=== PATIENT | female | born 1985 | race Caucasian/White ===

== ENCOUNTER 2021-07-28 19:11 | Emergency (ER) | payer OTHER, SELFPAY | END 2021-07-28 23:16 | disposition left against medical advice (07) | LOC: HO.ED 23:02 | PROVIDERS: Emergency Provider Emergency Medicine | DX: S09.90XA Unspecified injury of head, initial encounter (principal); W19.XXXA Unspecified fall, initial encounter; Y93.9 Activity, unspecified; Y92.9 Unspecified place or not applicable; Y99.9 Unspecified external cause status ==

== ENCOUNTER 2021-07-30 13:17 | Emergency (ER) | payer OTHER, SELFPAY ==
--- NOTE | ~2021-07-30 | XR_ITS ---
EXAMINATION: XR SACRUM AND COCCYX CLINICAL INFORMATION: Fall. Pain. COMPARISON: None TECHNIQUE: 2 views of the sacrum and 2 views of the coccyx were obtained. FINDINGS: There are no fractures. No bone, joint or soft tissue abnormality is demonstrated. XR/XR sacrum coccyx min 2V IMPRESSION: Unremarkable examination.
[2021-07-30 13:55] VITALS: BP 139/78; PULSE 70; RESP 16; TEMP 36.2; O2SAT 99; BMI 28.3
[2021-07-30] MEDS: Lidocaine 4 % Patch ADH..PATCH 1 PATCH TRANSDERMA (15:57)
[2021-07-30] MEDS: Ketorolac Tromethamine 30 MG/ML VIAL IM (15:57)
--- NOTE | 2021-07-30 16:01 | ED_ITS ---
HPI - Back Pain/Injury General Chief Complaint: Back Pain/Injury Stated Complaint: fall back inj Time Seen by Provider: 07/30/21 15:13 Source: patient Mode of arrival: ambulatory History of Present Illness HPI Narrative: 35-year-old female with no significant past medical history presenting to the ED complaining of buttock/coccygeal pain and headache s/p mechanical trip and fall on Wednesday. States was kicking a ball with dog when dog ran into foot causing her to fall on but, admits fell backwards and hit her head against bumper of car from standing. Denies LOC. Has been ambulatory since the incident. Reports associated pain radiating down LLE. Denies fever, chills, nausea, vomiting, vision changes, weakness, urinary incontinence/retention. Admits headache improved with medication at home. Denies taking AC MD elicited complaint: back pain Onset (ago): day(s) Related Data Previous Rx's Medication Instructions Recorded cyclobenzaprine 5 mg tablet 5 mg PO Q8H PRN 5 Days #14 tab 07/30/21 lidocaine 5 % topical patch 1 patch TOPICAL DAILY PRN #30 ea 07/30/21 (Lidoderm) MDD remove after 12 hours naproxen 500 mg tablet 500 mg PO BID PRN 10 Days #20 tab 07/30/21 Allergies Allergy/AdvReac Type Severity Reaction Status Date / Time Sulfa (Sulfonamide Allergy Rash Verified 07/30/21 13:55 Antibiotics) Review of Systems Review of Systems: Constitutional: No Fever, No Chills ENT/Mouth: No Ear Pain, No sore throat, No Rhinorrhea, No Swallowing Difficulty Cardiovascular: No Chest Pain, No SOB Respiratory: No Cough, No Sputum Gastrointestinal: No Nausea, No Vomiting, No Diarrhea, No Constipation, No Abdominal pain Genitourinary: No Dysuria, No Urinary Frequency, No Urinary Incontinence/retention Musculoskeletal: + joint pain, No Myalgias, No Joint Swelling Skin: No Skin Lesions, No rash Neuro: No Weakness, No Numbness, No Paresthesias, +headache Yes all other systems are reviewed and are negative Neurologic: Denies Abnormal speech present [facility] Past Medical History Attestation statement: The following information was validated with the patient. Social History Social History Advance Directives: No Advance Directives Information Provided: No Physical Exam Vital Signs: Vital Signs: Last Vital Signs Temp 97.2 F 07/30/21 13:55 Pulse 70 07/30/21 13:55 Resp 16 07/30/21 13:55 BP 139/78 07/30/21 13:55 Pulse Ox 99 07/30/21 13:55 BMI result Body Mass Index 28.3 Const: General: cooperative, healthy appearing, no acute distress, alert and awake Orientation/consciousness: patient oriented x3 Limitations: no limitations HEENT: Head: Yes normal to inspection and Yes atraumatic Ears: hearing grossly normal bilaterally General nose exam: Normal external nose present Face and sinus: Yes normal facial exam Eyes: General: appearance normal, both eyes and all related structures EOM: EOMs intact bilaterally Neck: Other: No midline cervical spinous tenderness Neck: Yes normal visual inspection and Yes no meningeal signs Resp: Effort & Inspection: normal respiratory effort and no respiratory distress Cardio: Rate: regular rate GI: Inspection: Yes normal to inspection Palpation (GI): Soft to palpation, nontender, no guarding and not rigid : General: Yes no CVA tenderness Back/Spine/Pelvis: Other: No midline thoracic/lumbar spinous tenderness/step-off or deformity. + coccygeal tenderness > right. No deformity/ecchymosis or erythema Back: no CVA tenderness Skin: Rashes: no rashes Wounds: no wounds Neuro: General: patient oriented x3, gait normal, tone normal, moves all extremities, no meningeal signs and no focal motor deficits Cognition (Neuro): normal cognition Speech: No Abnormal speech present Gait exam (Neuro): Normal gait present Motor exam (neuro): 5/5 motor strength present throughout Extrem: General: Yes normal to inspection Course Course Course Narrative: XR sacrum coccyx min 2V IMPRESSION: Unremarkable examination. >> results discussed with patient in spanish interpreter including worrisome signs and symptoms and strict return precautions and need to follow-up with PCP MDM - Back Pain/Injury MDM Narrative Medical decision making narrative: 35-year-old female with no significant past medical history presenting to the ED complaining of buttock/coccygeal pain and headache s/p mechanical trip and fall on Wednesday. On exam vital signs stable, NAD/nontoxic appearing. No midline spinous tenderness throughout, no red flag symptoms. No focal neuro deficits. Concern for fracture versus contusion versus MSK pain versus concussion. Unlikely ICH/cauda equina or cord compression Discussed worrisome signs and symptoms and strict return precautions with patient in need follow-up with PCP Medical Records Attestation: I reviewed the patient's medical records. Lab Data Attestation: I reviewed the patient's lab results. Discharge Plan Discharge Clinical Impression: Low back pain, Head injury Patient Disposition: Home, Self-Care Instructions: Acute Low Back Pain (ED) Additional Instructions: Your x-rays unremarkable Your pain is likely musculoskeletal Flexeril is a muscle relaxer, take at night as it makes you drowsy, do not drive, drink alcohol, or operate machinery while taking it Naproxen as an anti-inflammatory / pain medication, take with food Lidoderm patches are numbing patches, apply to painful area In addition take Tylenol at home If you develop constant worsening headaches, nausea/vomiting, weakness please return to the ED. If symptoms persist or worsen, pain becomes unbearable, you developed urinary retention or incontinence, or weakness return to the ED Prescriptions: New lidocaine [Lidoderm] 5 % adhesive patch,medicated 1 patch topical DAILY MDD remove after 12 hours PRN (Reason: pain) Qty: 30 0RF Rx Instructions: leave on most painful area for up to 12 hrs naproxen 500 mg tablet 500 mg PO BID PRN (Reason: pain) 10 Days Qty: 20 0RF cyclobenzaprine 5 mg tablet 5 mg PO Q8H PRN (Reason: pain (scale score 7-10)) 5 Days Qty: 14 0RF Referrals: Physician,Unknown J [Primary Care Provider] - 2 days
== END 2021-07-30 16:18 | disposition home or self-care (01) ==
PROVIDERS: Emergency Provider Emergency Medicine
DX: M54.50 Low back pain, unspecified (principal); R51.9 Headache, unspecified; M53.3 Sacrococcygeal disorders, not elsewhere classified; Z79.899 Other long term (current) drug therapy
CPT/HCPCS: 72220; 96372; 99282; 99284; J1885

== ENCOUNTER 2022-05-07 22:52 | Emergency (ER) | payer OTHER, SELFPAY ==
--- NOTE | ~2022-05-07 | XR_ITS ---
EXAMINATION: XR CHEST CLINICAL INFORMATION: Left-sided chest pain. COMPARISON: None TECHNIQUE: 2 views of the chest were obtained. FINDINGS: No significant abnormality is noted involving the heart, lungs, mediastinum, bony thorax or soft tissues. XR/XR chest 2V IMPRESSION: Unremarkable examination.
[2022-05-07 22:54] VITALS: BP 120/78; PULSE 87; RESP 18; TEMP 36.7; O2SAT 98; BMI 28.3
--- NOTE | 2022-05-07 22:57 | ECG_ITS ---
Test Reason : Chest Pain Blood Pressure : / mmHG Vent. Rate : 082 BPM Atrial Rate : 082 BPM P-R Int : 150 ms QRS Dur : 076 ms QT Int : 384 ms P-R-T Axes : 060 045 049 degrees QTc Int : 448 ms Normal sinus rhythm Normal ECG No previous ECGs available Referred By: Generic ED Physician Electronically Signed By:Jaswinder Torres
--- OUTSIDE RECORDS SUMMARY | 2022-05-07 23:14 | XMS_ITS | Continuity of Care Document ---
:1985 Author Organization [facility] Address [address] [place] [address]- Care Team Providers Name Role Phone Rafael VELASQUEZ, Quynh Rapp Primary Care Physician Encounter [facility] Date(s): 02/14/20 - 03/15/20 [facility] [address] [place] [id number] Allergies, Adverse Reactions, Alerts Substance Reaction Severity Status sulfa drugs RED RASH Active Immunizations Given and Recorded Vaccine Date Status Refusal Reason tetanus/diphtheria/pertussis, acel(Tdap) 05/19/18 Given influenza virus vaccine, inactivated 05/19/18 Given Medications famotidine 10 mg oral tablet 1 tablet = 10 mg, By Mouth, 2 times a day, 1 hour before meals, prn acid reflux, to repalce ranitidine, kinyarwanda, # 60 tablet, 5 Refills, Maintenance, 02/20/20 13:22:00 EST, Tablet, [id number], Partial fill upon patient request if the prescript... Start Date: 02/20/20 Status: Orderedibuprofen 600 mg oral tablet 600 mg, 1, tablet, By Mouth, Every 6 hours, with food or milk, prn pain, take with food, # 45 tablet, Refills 1, Tot. Refills 1, Maintenance, 02/20/20 13:23:00 EST, Route to Pharmacy Electronically, [id number], Partial fill upon patient reques... 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
--- OUTSIDE RECORDS SUMMARY | 2022-05-07 23:14 | XMS_ITS | Continuity of Care Document ---
:1985 Author Organization [facility] Address [address] [place] [address]- Care Team Providers Name Role Phone Gus Collado MD Primary Care Physician Encounter [facility] Date(s): 04/29/21 - 05/29/21 [facility] [address] [place] [id number] Allergies, Adverse Reactions, Alerts Substance Reaction Severity Status sulfa drugs RED RASH Active Immunizations Given and Recorded Vaccine Date Status Refusal Reason tetanus/diphtheria/pertussis, acel(Tdap) 05/19/18 Given influenza virus vaccine, inactivated 05/19/18 Given Medications famotidine 20 mg oral tablet 20 mg, 1, tablet, By Mouth, 2 times a day, # 60 tablet, Refills 2, Tot. Refills 2, Maintenance, 04/29/21 8:22:00 EST, Route to Pharmacy Electronically, [facility]/pharmacy #[id number], Partial fill upon patient request if the prescription is for a schedule II opio... 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
--- OUTSIDE RECORDS SUMMARY | 2022-05-07 23:14 | XMS_ITS | Continuity of Care Document ---
:1985 Author Organization [facility] Address [address] [place] [address]- Care Team Providers Name Role Phone Gus Collado MD Primary Care Physician Encounter [facility] Date(s): 03/10/21 - 04/18/21 [facility] [address] [place] [address]- Attending Physician: Not on Staff, Attending MD Referring Physician: Gus Collado MD Allergies, Adverse Reactions, Alerts Substance Reaction Severity Status sulfa drugs RED RASH Active Immunizations Given and Recorded Vaccine Date Status Refusal Reason tetanus/diphtheria/pertussis, acel(Tdap) 05/19/18 Given influenza virus vaccine, inactivated 05/19/18 Given Medications famotidine 20 mg oral tablet 20 mg, 1, tablet, By Mouth, 2 times a day, # 60 tablet, Refills 2, Tot. Refills 2, Maintenance, 05/09/20 15:03:00 EST, Route to Pharmacy Electronically, [facility]/pharmacy #[id number], Partial fill upon patient request if the prescription is for a schedule II opi... 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
--- OUTSIDE RECORDS SUMMARY | 2022-05-07 23:14 | XMS_ITS | Continuity of Care Document ---
:1985 Author Organization [facility] Address [address] [place] [address]- Care Team Providers Name Role Phone Rafael VELASQUEZ, Quynh Rapp Primary Care Physician Encounter [facility] Date(s): 04/28/19 - 07/22/19 [facility] [address] [place] [id number]- [facility] Attending Physician: Kevin Harmon MD Admitting Physician: Kevin Harmon MD Allergies, Adverse Reactions, Alerts Substance Reaction Severity Status sulfa drugs RED RASH Active Immunizations Given and Recorded Vaccine Date Status Refusal Reason tetanus/diphtheria/pertussis, acel(Tdap) 05/19/18 Given influenza virus vaccine, inactivated 05/19/18 Given Medications hydrOXYzine pamoate 25 mg oral capsule 1 capsule = 25 mg, By Mouth, 4 times a day, PRN for anxiety, label in anguillan, # 40 capsule, 0 Refills, Maintenance, 11/02/18 16:36:53 EDT, Capsule Start Date: 11/02/18 Status: Orderednorethindrone 5 mg oral tablet 5 mg, 1, tablet, By Mouth, Daily, # 90 tablet, Refills 3, Tot. Refills 3, Maintenance, 04/01/18 9:17:14 EST, Route to Pharmacy Electronically, [id number], [id number] Start Date: 04/01/18 Status: OrderedraNITIdine 150 mg oral capsule 1 capsule = 150 mg, By Mouth, 2 times a day, label in anguillan, # 60 capsule, 0 Refills, Maintenance,11/02/18 16:37:12 EDT, Capsule Start Date: 11/02/18 Status: Orderedsertraline 50 mg oral tablet 1 tablet = 50 mg, By Mouth, Daily, Label in anguillan., # 30 tablet, 5 Refills, Maintenance, 11/02/18 16:36:42 EDT, Tablet Start Date: 11/02/18 Status: Ordered Problem List Condition Effective Dates Status Health Status Informant Anxiety(Confirmed) Active hx FANY III (cervical intraepithelial Active neoplasia III)(Confirmed)1 [facility]GSIL-[facility] colpo pt(Confirmed) 02/2015 Active 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
--- OUTSIDE RECORDS SUMMARY | 2022-05-07 23:14 | XMS_ITS | Continuity of Care Document ---
:1985 Author Organization [facility] Address [address] [place] [address]- Care Team Providers Name Role Phone Gus Collado MD Primary Care Physician Encounter [facility] Date(s): 12/18/21 - 01/17/22 [facility] [address] [place] [address]- Attending Physician: Nicole Nava Admitting Physician: Admtr, Nicole Referring Physician: Admtr, [id number] Allergies, Adverse Reactions, Alerts Substance Reaction Severity Status sulfa drugs RED RASH Active Immunizations Given and Recorded Vaccine Date Status Refusal Reason SARS-CoV-2 (COVID-19) mRNA-1273 vaccine 01/29/21 Recorded SARS-CoV-2 (COVID-19) mRNA-1273 vaccine 01/01/21 Recorded tetanus/diphtheria/pertussis, acel(Tdap) 05/19/18 Given influenza virus vaccine, inactivated 05/19/18 Given Medications docusate sodium 60 mg/15 mL oral syrup 30 mL = 120 mg, By Mouth, Daily at bedtime, # 900 mL, 2 Refills, Maintenance, 09/01/21 10:01:00 EDT,[place], [id number], Partial fill upon patient request if the prescription is for a schedule II opioid drug., 166, cm, 09/01/21 8:15:00 EDT, Height Start Date: 09/01/21 Status: OrderedExcedrin Extra Strength oral tablet 2 tablet, By Mouth, Every 12 hours, PRN for headache, # 50 tablet, 0 Refills, Maintenance, 12/18/21 8:40:00 EDT, Tablet, [id number], Partial fill upon patient request if the prescription is fora schedule II opioid drug. ; Please discontinue a... Start Date: 12/18/21 Status: Orderedfamotidine 20 mg oral tablet 20 mg, 1, tablet, By Mouth, 2 times a day, # 60 tablet, Refills 2, Tot. Refills 2, Maintenance, 04/29/21 8:22:00 EST, Route to Pharmacy Electronically, [facility]/pharmacy #[id number], Partial fill upon patient request if the prescription is for a schedule II opio... Start Date: 04/29/21 Status: OrderedMiraLax oral powder for reconstitution = 17 Gm, By Mouth, Daily, PRN Constipation, dissolve in water before taking, # 527 Gm, 5 Refills, Maintenance, 09/01/21 10:01:00 EDT, REC Powder, [facility]/pharmacy #[id number], Partial fill upon patient request if the prescription is for a schedule II opioid alexis... 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
--- OUTSIDE RECORDS SUMMARY | 2022-05-07 23:14 | XMS_ITS | Continuity of Care Document ---
:1985 Author Organization [facility] Address [address] [place] [address]- Care Team Providers Name Role Phone Rafael VELASQUEZ, Quynh Rapp Primary Care Physician Encounter [facility] Date(s): 02/20/20 - 03/21/20 [facility] [address] [place] [address]- Attending Physician: Nicole Nava Admitting Physician: AdmtrNicole Referring Physician: Admtr, [id number] Allergies, Adverse Reactions, Alerts Substance Reaction Severity Status sulfa drugs RED RASH Active Immunizations Given and Recorded Vaccine Date Status Refusal Reason tetanus/diphtheria/pertussis, acel(Tdap) 05/19/18 Given influenza virus vaccine, inactivated 05/19/18 Given Medications famotidine 10 mg oral tablet 1 tablet = 10 mg, By Mouth, 2 times a day, 1 hour before meals, prn acid reflux, to repalce ranitidine, azeri, # 60 tablet, 5 Refills, Maintenance, 02/20/20 13:22:00 EST, Tablet, [facility]/pharmacy #[id number], Partial fill upon patient request if the prescript... Start Date: 02/20/20 Status: Orderedibuprofen 600 mg oral tablet 600 mg, 1, tablet, By Mouth, Every 6 hours, with food or milk, prn pain, take with food, # 45 tablet, Refills 1, Tot. Refills 1, Maintenance, 02/20/20 13:23:00 EST, Route to Pharmacy Electronically, [facility]/pharmacy #[id number], Partial fill upon patient reques... 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
--- OUTSIDE RECORDS SUMMARY | 2022-05-07 23:15 | XMS_ITS | Continuity of Care Document ---
:1985 Author Organization [facility] Address [address] [place] [id number]- Care Team Providers Name Role Phone Rafael VELASQUEZ, Quynh Rapp Primary Care Physician Encounter [facility] Date(s): 06/22/19 - 07/02/19 [facility] [address] [place] [address]- [facility] Attending Physician: Nicole Nava Admitting Physician: Nicole Nava Referring Physician: AdmNicole green Allergies, Adverse Reactions, Alerts Substance Reaction Severity Status sulfa drugs RED RASH Active Immunizations Given and Recorded Vaccine Date Status Refusal Reason tetanus/diphtheria/pertussis, acel(Tdap) 05/19/18 Given influenza virus vaccine, inactivated 05/19/18 Given Medications hydrOXYzine pamoate 25 mg oral capsule 1 capsule = 25 mg, By Mouth, 4 times a day, PRN for anxiety, label in equatorial guinean, # 40 capsule, 0 Refills, Maintenance, 11/02/18 16:36:53 EDT, Capsule Start Date: 11/02/18 Status: Orderednorethindrone 5 mg oral tablet 5 mg, 1, tablet, By Mouth, Daily, # 90 tablet, Refills 3, Tot. Refills 3, Maintenance, 04/01/18 9:17:14 EST, Route to Pharmacy Electronically, [id number], [id number] Start Date: 04/01/18 Status: OrderedraNITIdine 150 mg oral capsule 1 capsule = 150 mg, By Mouth, 2 times a day, label in equatorial guinean, # 60 capsule, 0 Refills, Maintenance,11/02/18 16:37:12 EDT, Capsule Start Date: 11/02/18 Status: Orderedsertraline 50 mg oral tablet 1 tablet = 50 mg, By Mouth, Daily, Label in equatorial guinean., # 30 tablet, 5 Refills, Maintenance, 11/02/18 16:36:42 EDT, Tablet Start Date: 11/02/18 Status: Ordered Problem List Condition Effective Dates Status Health Status Informant Anxiety(Confirmed) Active hx FANY III (cervical intraepithelial Active neoplasia III)(Confirmed)1 HGSIL-[facility] colpo pt(Confirmed) 02/2015 Active 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
--- OUTSIDE RECORDS SUMMARY | 2022-05-07 23:15 | XMS_ITS | Continuity of Care Document ---
:1985 Author Organization [facility] Address [address] [place] [address]- Care Team Providers Name Role Phone Rafael VELASQUEZ, Quynh Rapp Primary Care Physician [facility]counter [facility] Date(s): 05/09/20 - 06/08/20 [facility] [address] [place] [address]- Attending Physician: Nicole Nava Admitting Physician: AdmtrNicole Referring Physician: AdmtrNicole Allergies, Adverse Reactions, Alerts Substance Reaction Severity [...] 05/09/20 15:03:00 EST, Route to Pharmacy Electronically, [facility]/pharmacy #[id number], Partial fill upon patient request if the prescription is for a schedule II opi... 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
--- OUTSIDE RECORDS SUMMARY | 2022-05-07 23:15 | XMS_ITS | Continuity of Care Document ---
:1985 Author Organization [facility] Address [address] [place] [phone]- Care Team Providers Name Role Phone Gus Collado MD Primary Care Physician Encounter [facility] Date(s): 09/01/21 - 10/01/21 [facility] [address] [place] [phone]- Attending Physician: AdmNicole green Admitting Physician: Admtr, [id number] Referring Physician: Admtr, [id number] Allergies, Adverse Reactions, [...] mL, 2 Refills, Maintenance, 09/01/21 10:01:00 EDT,[place], [facility]/pharmacy #[id number], Partial fill upon patient request if the prescription is for a schedule II opioid drug., 166, cm, 09/01/21 8:15:00 EDT, Height Start Date: 09/01/21 Status: Orderedfamotidine 20 mg oral tablet 20 mg, 1, tablet, By Mouth, 2 times a day, # 60 tablet, Refills 2, Tot. Refills 2, Maintenance, 04/29/21 8:22:00 EST, Route to Pharmacy Electronically, [facility]/pharmacy #[id number], Partial fill upon patient request if the prescription is for a schedule II opio... Start Date: 04/29/21 Status: OrderedMiraLax oral powder for reconstitution = 17 Gm, By Mouth, Daily, PRN Constipation, dissolve in water before taking, # 527 Gm, 5 Refills, Maintenance, 09/01/21 10:01:00 EDT, REC Powder, [id number], Partial fill upon patient request if the prescription is for a schedule II opioid alexis... Start Date: 09/01/21 Status: Orderedsertraline 50 mg oral tablet 1 tablet = 50 mg, By Mouth, Daily, Label in faroese., # 30 tablet, 11 Refills, Maintenance, 228:22:00 EST, Tablet, [id number], 166, cm, 05/09/20 14:11:00 EST, Height Start Date: 04/29/21 Status: OrderedSUMAtriptan 50 mg oral tablet 1 tablet = 50 mg, By Mouth, Daily, PRN for migraine headache, may repeat dose after 2 hours up to a maximum of 2, # 9 tablet, 3 Refills, Maintenance, 09/01/21 10:02:00 EDT, Tablet, [id number], Partial fill upon patient request if the prescript... Start Date: 09/01/21 Status: Orderedtopiramate 25 mg oral capsule, extended release See Instructions, please provide instructions in [place] Islander take 1 tab daily for 1 week, followed by 2 tabs daily for 1 week, followed by 3 tabs daily, # 90 each, 2 Refills, Maintenance, 09/01/21 9:58:00 EDT, ER Capsule, [id number], Partial... 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
--- OUTSIDE RECORDS SUMMARY | 2022-05-07 23:15 | XMS_ITS | Continuity of Care Document ---
:1985 Author Organization [facility] Address [address] [place] [address]- Care Team Providers Name Role Phone Gus Collado MD Primary Care Physician Encounter [facility] Date(s): 03/19/21 - 04/18/21 [facility] [address] [place] [address]- Attending Physician: AdmNicole green Admitting Physician: AdmtrNicole Referring Physician: Admtr, Ar8 Allergies, Adverse Reactions, [...] 05/09/20 15:03:00 EST, Route to Pharmacy Electronically, [facility]/pharmacy #[id number], Partial fill upon patient request if the prescription is for a schedule II opi... 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
--- OUTSIDE RECORDS SUMMARY | 2022-05-07 23:15 | XMS_ITS | Continuity of Care Document ---
:1985 Author Organization [facility] Address [address] [place] [phone]- Care Team Providers Name Role Phone Gus Collado MD Primary Care Physician Encounter [facility] Date(s): 02/25/22 - 04/25/22 [facility] [address] [place] [address] Attending Physician: Kevin Harmon MD Admitting Physician: Kevin Harmon MD Allergies, Adverse Reactions, Alerts Substance Reaction Severity Status sulfa drugs RED RASH Active Immunizations Given and Recorded Vaccine Date Status Refusal Reason SARS-CoV-2 (COVID-19) mRNA-1273 vaccine 01/29/21 Recorded SARS-CoV-2 (COVID-19) mRNA-1273 vaccine 01/01/21 Recorded tetanus/diphtheria/pertussis, acel(Tdap) 05/19/18 Given influenza virus vaccine, inactivated 05/19/18 Given Medications Excedrin Extra Strength oral tablet 2 tablet, By Mouth, Every 12 hours, PRN for headache, # 50 tablet, 0 Refills, Maintenance, 12/18/21 8:40:00 EDT, Tablet, [id number], Partial fill upon patient request if the prescription is fora schedule II opioid drug. ; Please discontinue a... Start Date: 12/18/21 Status: Orderednaproxen 500 mg oral tablet 1 tablet = 500 mg, By Mouth, 2 times a day, PRN for pain, do not mix with ibuprofen, # 60 tablet, 1 Refills, Maintenance, 04/10/22 17:12:00 EST, Tablet, [id number], Partial fill upon patient request if the prescription is for a schedule II opi... 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
--- OUTSIDE RECORDS SUMMARY | 2022-05-07 23:15 | XMS_ITS | Continuity of Care Document ---
:1985 Author Organization [facility] [employer] [facility] Address [address] [place] [address], [address] [place] [address]- Care Team Providers Name Role Phone Gus Collado MD Primary Care Physician Encounter [facility] Date(s): 03/24/22 - 03/31/22 [facility] [facility] [address] [place] [address], [address] [place] [address]- Attending Physician: Vish Castillo MD Admitting Physician: Bianka Tejeda Referring Physician: Gus Collado MD Allergies, Adverse [...] Refills, Maintenance, 12/18/21 8:40:00 EDT, Tablet, [id number], Partial fill upon patient request if the prescription is fora schedule II opioid drug. ; Please discontinue a... 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 needed Confirmed Active 1CKC done Vital Signs Most recent to oldest [Reference Range]: 1 Height 166 cm (03/24/22 9:02 AM) Weight 76.81 kg (03/24/22 9:02 AM) Body Mass Index [18.5-24.99 kg/m2] 27.87 kg/m2 *H* (03/24/22 9:02 AM) Blood Pressure [90-138/55-84 mm Hg] 110/70 mm Hg (03/24/22 9:02 AM) Blood pressure sites Arm, right (03/24/22 9:02 AM) Weight Obtained Via Standing scale (03/24/22 9:02 AM) Social History Social History Type Response Smoking Status Never (less than 100 in life time) entered on: 05/09/20 Sex Patient Care team information Care Team PersonnelName: Gus Collado MD Position: [facility] Resident Member Role: PCP Address: Address: [address] [place] [phone]- Care Team Related PersonsName: CHRIS JEWELL Address: [address] [place] [address] Name: VIOLET BOO Name: WADE MARIE Address: [address] [place] [address]
--- OUTSIDE RECORDS SUMMARY | 2022-05-07 23:15 | XMS_ITS | Continuity of Care Document ---
:1985 Author Organization [facility] Address [address] [place] [address]- Care Team Providers Name Role Phone Rafael VELASQUEZ, Quynh Rapp Primary Care Physician [place] [facility] 03/14/20 - 05/01/[address] [address] Attending Physician: Billie Mai NP Admitting Physician: Billie Mai NP Referring Physician: Billie Mai NP Allergies, Adverse Reactions, Alerts Substance Reaction Severity Status sulfa drugs RED RASH Active Immunizations Given and Recorded Vaccine Date Status Refusal Reason tetanus/diphtheria/pertussis, acel(Tdap) 05/19/18 Given influenza virus vaccine, inactivated 05/19/18 Given Medications famotidine 10 mg oral tablet 1 tablet = 10 mg, By Mouth, 2 times a day, 1 hour before meals, prn acid reflux, to repalce ranitidine, portuguese, # 60 tablet, 5 Refills, Maintenance, 02/20/20 13:22:00 EST, Tablet, [facility]/pharmacy #[id number], Partial fill upon patient request if the prescript... Start Date: 02/20/20 Status: Orderedibuprofen 600 mg oral tablet 600 mg, 1, tablet, By Mouth, Every 6 hours, with food or milk, prn pain, take with food, # 45 tablet, Refills 1, Tot. Refills 1, Maintenance, 02/20/20 13:23:00 EST, Route to Pharmacy Electronically, [facility]/pharmacy #[id number], Partial fill upon patient reques... 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
--- OUTSIDE RECORDS SUMMARY | 2022-05-07 23:15 | XMS_ITS | Continuity of Care Document ---
:1985 Author Organization [facility] Address [address] [place] [address]- Care Team Providers Name Role Phone Rafael VELASQUEZ, Quynh Rapp Primary Care Physician Encounter [facility] Date(s): 03/04/20 - 04/12/[address] [address] Attending Physician: Billie Mai NP Admitting Physician: [...] meals, prn acid reflux, to repalce ranitidine, british, # 60 tablet, 5 Refills, Maintenance, 02/20/20 13:22:00 EST, Tablet, [facility]/pharmacy #[id number], Partial fill upon patient request if the prescript... Start Date: 02/20/20 Status: Orderedibuprofen 600 mg oral tablet 600 mg, 1, tablet, By Mouth, Every 6 hours, with food or milk, prn pain, take with food, # 45 tablet, Refills 1, Tot. Refills 1, Maintenance, 02/20/20 13:23:00 EST, Route to Pharmacy Electronically, [facility]/pharmacy #[id number], Partial fill upon patient reques... 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
--- OUTSIDE RECORDS SUMMARY | 2022-05-07 23:15 | XMS_ITS | Continuity of Care Document ---
:1985 Author Organization [facility] Address [address] [place] [address]- Care Team Providers Name Role Phone Rafael VELASQUEZ, Quynh Rapp Primary Care Physician [place] [facility] [place](s): 03/04/20 - 04/18/[address] [address] Attending Physician: Billie Mai NP [...] meals, prn acid reflux, to repalce ranitidine, tunisian, # 60 tablet, 5 Refills, Maintenance, 02/20/20 13:22:00 EST, Tablet, [facility]/pharmacy #[id number], Partial fill upon patient request if the prescript... Start Date: 02/20/20 Status: Orderedibuprofen 600 mg oral tablet 600 mg, 1, tablet, By Mouth, Every 6 hours, with food or milk, prn pain, take with food, # 45 tablet, Refills 1, Tot. Refills 1, Maintenance, 02/20/20 13:23:00 EST, Route to Pharmacy Electronically, [facility]/pharmacy #[id number], Partial fill upon patient reques... Start Date: 02/20/20 Status: Orderedsertraline 50 mg oral tablet 1 tablet = 50 mg, By Mouth, Daily, Label in tunisian., # 30 tablet, 11 Refills, Maintenance, 02/19/2013:20:00 EST, Tablet, [id number], 166, cm, 11/02/18 15:48:00 EDT, Height, 73.4, kg, 05/18/1909:16:00 EST, Dry Weight Start Date: 02/20/20 Status: Ordered Problem List Condition Effective Dates Status Health Status Informant Anxiety(Confirmed) Active hx FANY III (cervical intraepithelial Active neoplasia III)(Confirmed)1 HGSIL-bmwh colpo pt(Confirmed) 02/2015 Active Nauruan speaking patient - per diem interpreter Active needed(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
--- OUTSIDE RECORDS SUMMARY | 2022-05-07 23:15 | XMS_ITS | Continuity of Care Document ---
:1985 Author Organization [facility] Address [address] [place] [address]- Care Team Providers Name Role Phone Rafael VELASQUEZ, Quynh Rapp Primary Care Physician En[place] [facility] [place] Date(s): 07/15/20 - 08/14/20 [facility] [address] [place] [id number] Allergies, Adverse Reactions, Alerts Substance Reaction Severity [...] 05/09/20 15:03:00 EST, Route to Pharmacy Electronically, [facility]/pharmacy #[id number], Partial fill upon patient request if the prescription is for a schedule II opi... 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
[2022-05-07 23:16] LABS: Basophils Absolute Auto 0.1 X10*3/uL (0.0-0.2); Basophils Percent Auto 0.6 % (0-2); Eosinophils Absolute Auto 0.2 X10*3/uL (0.0-0.4); Eosinophils Percent Auto 2.3 % (0-4); Hematocrit 38.3 % (37.0-47.0); Hemoglobin 12.9 g/dl (12.0-16.0); Imm Gran Abs Auto 0.01 X10*3/uL (0.00-0.03); Imm Gran Pct Auto 0.1 % (0.0-0.4); Lymphocytes Absolute Auto 2.7 X10*3/uL (1.2-4.9); Lymphocytes Percent Auto 34.4 % (20-40); MANUAL DIFF FLAG NO; Mean Corpuscular HGB Conc 33.7 g/dl (31.0-35.0); Mean Corpuscular Hemoglobin 28.5 pg (27.0-33.0); Mean Corpuscular Volume 84.5 fL (80.0-98.0); Mean Platelet Volume 11.4 fL (9.4-12.3); Monocytes Absolute Auto 0.5 X10*3/uL (0.1-1.2); Monocytes Percent Auto 5.8 % (2-11); Neutrophils Absolute Auto 4.4 x10*3/uL (2.0-8.3); Neutrophils Percent Auto 56.8 % (45-73); Platelet Count 283 X10*3/uL (160-400); Red Blood Count 4.53 X10*6/uL (4.20-5.50); Red Cell Distribution Width 12.1 % (11.0-16.0); White Blood Count 7.8 X10*3/uL (4.8-10.8)
[2022-05-07 23:23] VITALS: BP 112/65; PULSE 66; RESP 16; TEMP 36.4
--- NOTE | 2022-05-07 23:50 | ED_ITS ---
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 Yesterday with left sided chest pain, radiating to left shoulder. Today the pain radiated to the right side. The pain is constant, she feels the pain in the back, it feels like she had a strained muscle. 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 MD complaint: chest pain Onset (ago): day(s) Timing of current episode: constant Prior episodes: Yes Pain location: left chest and right chest Pain radiation: left arm Severity: mild Quality: aching Relieving factors: nothing Treatment prior to arrival: none Related Data Previous Rx's Medication Instructions Recorded cyclobenzaprine 5 mg tablet 5 mg PO Q8H PRN pain (scale score 07/30/21 7-10) 5 days #14 tabs lidocaine 5 % topical patch 1 patch topical DAILY PRN pain #30 07/30/21 (Lidoderm) ea naproxen 500 mg tablet 500 mg PO BID PRN pain 10 days #20 07/30/21 tabs naproxen 500 mg tablet (Naprosyn) 500 mg PO BID #20 tabs 05/08/22 Allergies Allergy/AdvReac Type Severity Reaction Status Date / Time Sulfa (Sulfonamide Allergy Rash Verified 05/07/22 22:57 Antibiotics) Review of Systems Review of Systems: Yes all other systems are reviewed and are negative Cardiovascular: Cardiovascular: Reports chest pain PMFSH Social History Social History Advance Directives: No Advance Directives Information Provided: Yes Physical Exam Vital Signs: Vital Signs: Last Vital Signs Temp 97.5 F 05/07/22 23:23 Pulse 66 05/07/22 23:23 Resp 16 05/07/22 23:23 BP 112/65 05/07/22 23:23 Pulse Ox 98 05/07/22 22:54 O2 Del Method 05/07/22 23:23 O2 Flow Rate 97 05/07/22 23:23 BMI result Body Mass Index 28.3 Const: General: healthy appearing Nutritional Appearance: average body habitus Orientation/consciousness: oriented to person and patient oriented x3 Limitations: no limitations HEENT: Head: Yes normal to inspection Ears: external ears normal General nose exam: Normal external nose present Mouth: Normal oral and palatal mucosa present and oropharynx normal Throat: Yes posterior oropharynx normal Eyes: General: appearance normal, both eyes and all related structures Neck: Other: supple Neck: Yes normal visual inspection Chest: Other: left sided reproducible chest pain Resp: Auscultation: clear to auscultation bilaterally Cardio: Jugular venous distension: no JVD Rate: regular rate Rhythm: regular rhythm Heart sounds: S1 normal heart sound present and S2 normal heart sound present GI: Inspection: Yes normal to inspection Palpation (GI): Soft to palpation, nontender and No hepatosplenomegaly present Auscultation: normal bowel sounds : General: Yes no CVA tenderness Back/Spine/Pelvis: Back: no CVA tenderness Skin: General skin exam: no rashes or lesions noted Neuro: General: oriented to person and patient oriented x3 Cranial nerves: Yes CN's II-XII intact bilaterally Motor exam (neuro): 5/5 motor strength present throughout Extrem: General: Yes normal to inspection Psych: Appearance: grossly normal Course Reevaluation(s) Reevaluation #1: EKG and cxr normal will treat for costrochondritis Time: 00:42 Medications Administered Discontinued Medications Generic Name Dose Route Start Last Admin Trade Name Freq PRN Reason Stop Dose Admin Cyclobenzaprine HCl 10 mg 05/08/22 00:00 05/08/22 00:24 Cyclobenzaprine Hcl 10 Mg Tablet PO 05/08/22 00:01 10 mg ONCE ONE Administration Ketorolac Tromethamine 60 mg 05/07/22 23:59 05/08/22 00:23 Ketorolac Tromethamine 60 Mg/2 Ml Vial IM 05/08/22 00:00 60 mg ONCE ONE Administration Medical Decision Making Differential Diagnosis Differential Diagnoses: The differential diagnosis associated with the presentation includes (acute coronary syndrome, PE, pneumonia costochondritis were all considered) Lab Data MDM Lab Attestation statement: I reviewed the patient's lab results. 05/07/22 23:11 05/07/22 23:11 Labs: Lab Results 05/07/22 05/07/22 05/07/22 Range/Units 23:11 23:11 23:11 WBC 7.8 (4.8-10.8) X10*3/uL RBC 4.53 (4.20-5.50) X10*6/uL Hgb 12.9 (12.0-16.0) g/dl Hct 38.3 (37.0-47.0) % MCV 84.5 (80.0-98.0) fL MCH 28.5 (27.0-33.0) pg MCHC 33.7 (31.0-35.0) g/dl RDW 12.1 (11.0-16.0) % Plt Count 283 (160-400) X10*3/uL MPV 11.4 (9.4-12.3) fL Immature Gran % (Auto) 0.1 (0.0-0.4) % Neut % (Auto) 56.8 (45-73) % Lymph % (Auto) 34.4 (20-40) % [place] % (Auto) 5.8 (2-11) % Eos % (Auto) 2.3 (0-4) % Baso % (Auto) 0.6 (0-2) % Lymph # (Auto) 2.7 (1.2-4.9) X10*3/uL [place] # (Auto) 0.5 (0.1-1.2) X10*3/uL Eos # (Auto) 0.2 (0.0-0.4) X10*3/uL Baso # (Auto) 0.1 (0.0-0.2) X10*3/uL Abs Immat Gran (auto) 0.01 (0.00-0.03) X10*3/uL Absolute Neuts (auto) 4.4 (2.0-8.3) x10*3/uL Absolute Nucleated RBC 0.000 (0.0-0.012) X10*3/uL Nucleated RBC % (auto) 0.0 (0.0-0.2) /100WBC Sodium 140 (135-145) mmol/L Potassium 4.2 (3.3-5.1) mmol/L Chloride 106 (96-108) mmol/L Carbon Dioxide 24 (22-29) mmol/L Anion Gap 14 (12-20) BUN 15 (9-16) mg/dL Creatinine 0.90 (0.5-1.4) mg/dL Estim Creat Clear Calc 87.0 Estimated GFR > 60 Random Glucose 121 H (60-115) mg/dL Calcium 9.6 (8.4-10.2) mg/dL Troponin I High Sens < 3.5 (<3.5-17.0) ng/L Independent Interpretation I performed an independent interpretation of an: EKG (normal sinus 82, no st or twave changes) and Plain X-Ray (chest no infiltrate) Independent Historian Clinical information obtained from an independent historian. History obtained from or confirmed by: Spouse Discharge Plan Discharge Clinical Impression: Chest pain, Acute costochondritis Patient Disposition: Home, Self-Care Instructions: Chest Pain (ED), Costochondritis (ED) Prescriptions: New naproxen [Naprosyn] 500 mg tablet 500 mg PO BID Qty: 20 0RF No Action lidocaine [Lidoderm] 5 % adhesive patch,medicated 1 patch topical DAILY MDD remove after 12 hours PRN (Reason: pain) Qty: 30 0RF Rx Instructions: leave on most painful area for up to 12 hrs naproxen 500 mg tablet 500 mg PO BID PRN (Reason: pain) 10 Days Qty: 20 0RF cyclobenzaprine 5 mg tablet 5 mg PO Q8H PRN (Reason: pain (scale score 7-10)) 5 Days Qty: 14 0RF Referrals: Kevin Harmon MD [Primary Care Provider] - 1 week
[2022-05-07 23:59] LABS: Anion Gap 14 (12-20); Blood Urea Nitrogen 15 mg/dL (9-16); Calcium 9.6 mg/dL (8.4-10.2); Carbon Dioxide 24 mmol/L (22-29); Chloride 106 mmol/L (96-108); Estimated Glomerular Filt Rate > 60; Glucose Random 121 mg/dL (60-115); Potassium 4.2 mmol/L (3.3-5.1); Sodium 140 mmol/L (135-145)
[2022-05-08 00:06] LABS: Troponin-I High Sensitivity < 3.5 ng/L (<3.5-17.0)
[2022-05-08] MEDS: Ketorolac Tromethamine 60 MG/2 ML VIAL IM (00:23)
[2022-05-08] MEDS: Cyclobenzaprine HCl 10 MG TABLET PO (00:24)
== END 2022-05-08 00:53 | disposition home or self-care (01) ==
PROVIDERS: Emergency Provider Emergency Medicine; PCP Internal Medicine
DX: R07.89 Other chest pain (principal); M54.50 Low back pain, unspecified; M79.602 Pain in left arm; M94.0 Chondrocostal junction syndrome [Tietze]; Z79.899 Other long term (current) drug therapy
CPT/HCPCS: 36415; 71046; 80048; 84484; 85025; 93005; 96372; 99284; J1885

== ENCOUNTER 2022-05-12 21:46 | Emergency (ER) | payer OTHER, SELFPAY ==
[2022-05-12 22:11] VITALS: BP 117/76; PULSE 96; RESP 20; TEMP 36.6; O2SAT 97; BMI 28.3
[2022-05-12 22:52] LABS: IDNOW Serial# 6674DD1D; Strep A Nucleic Acid Negative (Negative)
[2022-05-12 23:20] LABS: Influenza A PCR NEGATIVE (Negative); Influenza B PCR NEGATIVE (Negative); Resp Syncy Virus RNA Qual PCR NEGATIVE (Negative); SARS COV2 PCR INHOUSE POSITIVE (Negative)
--- NOTE | 2022-05-13 01:47 | ED.URI ---
HPI - URI/Sore Throat General Chief Complaint: Upper Respiratory Symptoms Stated Complaint: Chest pain/Flu like symptoms Time Seen by Provider: 05/13/22 01:47 Source: patient Mode of arrival: ambulatory Limitations: no limitations History of Present Illness HPI Narrative: Patient been sick for last 2 days with body aches cough sore throat nasal congestion already been vaccine against COVID no other family member sick saturating 97% on room air no history of asthma Related Data Previous Rx's Medication Instructions Recorded cyclobenzaprine 5 mg tablet 5 mg PO Q8H PRN pain (scale score 07/30/21 7-10) 5 days #14 tabs lidocaine 5 % topical patch 1 patch topical DAILY PRN pain #30 07/30/21 (Lidoderm) ea naproxen 500 mg tablet 500 mg PO BID PRN pain 10 days #20 07/30/21 tabs naproxen 500 mg tablet (Naprosyn) 500 mg PO BID #20 tabs 05/08/22 benzonatate 200 mg capsule 200 mg PO TID PRN cough #30 caps 05/13/22 dexamethasone 6 mg tablet 6 mg PO DAILY #6 tabs 05/13/22 ibuprofen 600 mg tablet 600 mg PO Q6H PRN fever or pain 05/13/22 #30 tabs Allergies Allergy/AdvReac Type Severity Reaction Status Date / Time Sulfa (Sulfonamide Allergy Rash Verified 05/07/22 22:57 Antibiotics) Review of Systems Review of Systems: Yes all other systems are reviewed and are negative [facility] Social History Social History Advance Directives: No Advance Directives Information Provided: Yes Physical Exam Vital Signs: Vital Signs: Last Vital Signs Temp 98 F 05/12/22 22:11 Pulse 96 05/12/22 22:11 Resp 20 05/12/22 22:11 BP 117/76 05/12/22 22:11 Pulse Ox 97 05/12/22 22:11 O2 Del Method 05/12/22 22:11 BMI result Body Mass Index 28.3 Appearance: Alert. Oriented X3. No acute distress. ENT: Pharynx normal. Oral Mucosa moist Neck: Normal inspection. Neck supple. CVS: Normal heart rate and rhythm. Pulses normal. Respiratory: No respiratory distress. Equal air entry bilateral, no wheezing/rales/rhonchi Skin: Skin warm and dry. Normal skin color. Normal skin turgor. Extremities: No lower extremity edema. Neuro: Oriented X 3. Medications Administered Discontinued Medications Generic Name Dose Route Start Last Admin Trade Name Bartq PRN Reason Stop Dose Admin Dexamethasone 6 mg 05/13/22 01:54 05/13/22 02:10 Dexamethasone 6 Mg Tablet PO 05/13/22 01:55 6 mg ONCE ONE Administration Guaifenesin/Codeine Phosphate 10 ml 05/13/22 01:54 05/13/22 02:10 Guaifen/Codeine Sf 200/20/10ml 10 Ml Liquid PO 05/13/22 01:55 10 ml ONCE ONE Administration Medical Decision Making Medical Decision Making MDM Narrative: Patient will COVID-19 positive with upper respiratory symptoms lungs are clear saturating 97% will start patient on Decadron and Tessalon Lab Data [facility] Lab Attestation statement: I reviewed the patient's lab results. Labs: Lab Results 05/12/22 05/12/22 Range/Units 01:20 22:20 Influenza Type A (PCR) NEGATIVE (Negative) Influenza Type B (PCR) NEGATIVE (Negative) RSV RNA Qual (PCR) NEGATIVE (Negative) SARS-CoV-2 RNA (RT-PCR) POSITIVE A (Negative) S. pyogenes GrpA SHARIFA Negative (Negative) Discharge Plan Discharge Clinical Impression: COVID-19 Patient Disposition: Home, Self-Care Instructions: COVID-19 (Coronavirus Disease 2019) (ED) Additional Instructions: Social distancing as advised Cough drops as prescribed Ibuprofen for pain Decadron for inflammation Report to ER/PCP if not better Prescriptions: New benzonatate 200 mg capsule 200 mg PO TID PRN (Reason: cough) Qty: 30 0RF dexamethasone 6 mg tablet 6 mg PO DAILY Qty: 6 0RF ibuprofen 600 mg tablet 600 mg PO Q6H PRN (Reason: fever or pain) Qty: 30 0RF No Action naproxen [Naprosyn] 500 mg tablet 500 mg PO BID Qty: 20 0RF lidocaine [Lidoderm] 5 % adhesive patch,medicated 1 patch topical DAILY MDD remove after 12 hours PRN (Reason: pain) Qty: 30 0RF Rx Instructions: leave on most painful area for up to 12 hrs naproxen 500 mg tablet 500 mg PO BID PRN (Reason: pain) 10 Days Qty: 20 0RF cyclobenzaprine 5 mg tablet 5 mg PO Q8H PRN (Reason: pain (scale score 7-10)) 5 Days Qty: 14 0RF
[2022-05-13] MEDS: guaiFEN/Codeine SF 200/20/10ML 10 ML LIQUID PO (02:10)
[2022-05-13] MEDS: dexAMETHasone 6 MG TABLET PO (02:10)
== END 2022-05-13 02:15 | disposition home or self-care (01) ==
PROVIDERS: Emergency Provider Internal Medicine; PCP Internal Medicine
DX: U07.1 COVID-19 (principal); R07.89 Other chest pain; Z79.899 Other long term (current) drug therapy
CPT/HCPCS: 0241U; 87651; 99282; 99283; J8540

== ENCOUNTER 2022-06-26 20:11 | Emergency (ER) | payer OTHER, SELFPAY ==
--- NOTE | ~2022-06-26 | XR_ITS ---
EXAMINATION: XR WRIST, LEFT XR HAND, LEFT CLINICAL INFORMATION: Left hand injury COMPARISON: None available. TECHNIQUE: PA, lateral, and oblique views of the left wrist and PA, lateral, and oblique views of the left hand FINDINGS: LEFT WRIST: The bones and soft tissues are normal. No fracture. Alignment is anatomic. Joint spaces are maintained. No erosions or soft tissue calcifications. LEFT HAND: The bones and soft tissues are normal. No fracture. Alignment is anatomic. Joint spaces are maintained. No erosions or soft tissue calcifications. XR/XR hand wrist LT IMPRESSION: Normal left hand and wrist.
[2022-06-26 20:36] VITALS: BP 110/70; PULSE 73; RESP 18; TEMP 36.6; O2SAT 97; BMI 26.9
--- NOTE | 2022-06-26 23:40 | ED.EXTPRO ---
HPI - Extremity Problem General Chief complaint: Extremity Injury, Upper Stated complaint: twisted l thumb Time Seen by Provider: 06/26/22 23:34 Source: patient Mode of arrival: ambulatory Limitations: no limitations History of Present Illness HPI Narrative: Patient comes emergency room complaining of left thumb pain. Patient states she was playing with her dog, she accidentally sprained her thumb backwards and has been hurting since then. Patient denies any other injuries Related Data Previous Rx's Medication Instructions Recorded cyclobenzaprine 5 mg tablet 5 mg PO Q8H PRN pain (scale score 07/30/21 7-10) 5 days #14 tabs lidocaine 5 % topical patch 1 patch topical DAILY PRN pain #30 07/30/21 (Lidoderm) ea naproxen 500 mg tablet 500 mg PO BID PRN pain 10 days #20 07/30/21 tabs naproxen 500 mg tablet (Naprosyn) 500 mg PO BID #20 tabs 05/08/22 benzonatate 200 mg capsule 200 mg PO TID PRN cough #30 caps 05/13/22 dexamethasone 6 mg tablet 6 mg PO DAILY #6 tabs 05/13/22 ibuprofen 600 mg tablet 600 mg PO Q6H PRN fever or pain 05/13/22 #30 tabs ibuprofen 600 mg tablet 600 mg PO TID PRN fever or pain 06/26/22 #14 tabs Allergies Allergy/AdvReac Type Severity Reaction Status Date / Time Sulfa (Sulfonamide Allergy Rash Verified 06/26/22 20:42 Antibiotics) Review of Systems Review of Systems: Constitutional : No Weight loss, No Fever, No Chills, No Night Sweats, No Fatigue, No Malaise ENT/Mouth : No Hearing loss, No Ear Pain, No Nasal Congestion, No Sinus Pain, No Hoarseness, No sore throat, No Rhinorrhea, No Swallowing Difficulty Eyes: No Eye Pain, No Swelling, No Redness, No Foreign Body, No Discharge, No Vision Changes Cardiovascular : No Chest Pain, No SOB, No Dyspnea on Exertion, No Orthopnea, No Edema, No Palpitations Respiratory : No Cough, No Sputum, No Wheezing, No Smoke Exposure, No Dyspnea Gastrointestinal : No Nausea, No Vomiting, No Diarrhea, No Constipation, No abdominal Pain, No Hematochezia, No Melena Genitourinary : no irregular bleeding, No Dysuria, No Urinary Frequency, No Hematuria, No Urinary Incontinence, No Urgency, No Flank Pain, No Urinary Flow Changes, No Hesitancy Musculoskeletal : Complaining of some pain of the left hand No Myalgias, No Joint Swelling Skin : No Skin Lesions, No rash Neuro : No Weakness, No Numbness, No Paresthesias, No Loss of Consciousness, No Dizziness, No Headache Psych : No Anxiety/Panic, No Depression, No SI/HI/AH/VH, No Social Issues, Heme/Lymph: No Bruising, No Bleeding,No Lymphadenopathy Endocrine : No Polyuria, No Polydipsia, No Temperature Intolerance Physical Exam Vital Signs: Vital Signs: Last Vital Signs Temp 97.8 F 06/26/22 20:36 Pulse 73 06/26/22 20:36 Resp 18 06/26/22 20:36 BP 110/70 06/26/22 20:36 Pulse Ox 97 06/26/22 20:36 O2 Del Method Room Air 06/26/22 20:36 BMI result Body Mass Index 26.9 Const: Other: Appearance: Alert. Oriented X3. No acute distress. Eyes: Pupils equal, round and reactive to light. ENT: Pharynx normal. Neck: Normal inspection. Neck supple. No lymph nodes noted. No crepitus CVS: Normal heart rate and rhythm. Pulses normal. Normal S1 and S2 Respiratory: No respiratory distress. Breath sounds normal. No Wheezing. No rales Abdomen: Soft and nontender. No rigidity. No distention. Skin: Skin warm and dry. Normal skin color. Normal skin turgor. Extremities: No lower extremity edema. Thumb has mild ecchymosis in the palmar aspect, mildly swollen, able to flex and extend slightly due to pain, admission looks normal Neuro: Oriented X 3. No motor deficit. No sensory deficit. Moving all extremities. No slurred speech. CN 2 through 12 grossly intact Psych: calm, cooperative, normal affect Medical Decision Making Medical Decision Making MDM Narrative: -patient's x-ray within normal limits interpreted by me, no dislocation or fracture -patient does not have significant swelling to suspect skiers thumb. Patient finger was placed in a spica, instructed to follow-up with Hand surgery on Wednesday. Differential Diagnosis Differential Diagnoses: The differential diagnosis associated with the presentation includes (Left thumb sprain versus fracture versus contusion) Independent Interpretation I performed an independent interpretation of an: Plain X-Ray Radiology Impression Discussion of test interpretation with radiology: I have reviewed the radiologist's reading. Radiologist Impression: FINDINGS: No significant abnormality is noted involving the heart, lungs, mediastinum, bony thorax or soft tissues. XR/XR chest 1V IMPRESSION: Unremarkable examination. Discharge Plan Discharge Clinical Impression: Left thumb sprain Patient Disposition: Home, Self-Care Instructions: Finger Sprain (ED) Additional Instructions: Please follow-up with your primary care physician tomorrow. If you have any worsening or new symptoms, please return to the emergency room or call 911 Prescriptions: New ibuprofen 600 mg tablet 600 mg PO TID PRN (Reason: fever or pain) Qty: 14 0RF No Action naproxen [Naprosyn] 500 mg tablet 500 mg PO BID Qty: 20 0RF benzonatate 200 mg capsule 200 mg PO TID PRN (Reason: cough) Qty: 30 0RF dexamethasone 6 mg tablet 6 mg PO DAILY Qty: 6 0RF ibuprofen 600 mg tablet 600 mg PO Q6H PRN (Reason: fever or pain) Qty: 30 0RF lidocaine [Lidoderm] 5 % adhesive patch,medicated 1 patch topical DAILY MDD remove after 12 hours PRN (Reason: pain) Qty: 30 0RF Rx Instructions: leave on most painful area for up to 12 hrs naproxen 500 mg tablet 500 mg PO BID PRN (Reason: pain) 10 Days Qty: 20 0RF cyclobenzaprine 5 mg tablet 5 mg PO Q8H PRN (Reason: pain (scale score 7-10)) 5 Days Qty: 14 0RF Referrals: Luisa Hernandez MD [Physician] - 06/29/22
[2022-06-26 23:44] VITALS: BP 103/72; PULSE 89; RESP 16; O2SAT 100
[2022-06-27] MEDS: Ibuprofen 600 MG TABLET PO (00:30)
== END 2022-06-27 00:40 | disposition home or self-care (01) ==
PROVIDERS: Emergency Provider Emergency Medicine; PCP Internal Medicine
DX: S63.602A Unspecified sprain of left thumb, initial encounter (principal); M25.532 Pain in left wrist; Y29.XXXA Contact with blunt object, undetermined intent, initial encounter; Y93.9 Activity, unspecified; Y92.9 Unspecified place or not applicable; Y99.9 Unspecified external cause status; Z79.899 Other long term (current) drug therapy
CPT/HCPCS: 29130; 73110; 73130; 99283

== ENCOUNTER 2022-08-13 20:12 | Emergency (ER) | payer OTHER, SELFPAY ==
--- NOTE | 2022-08-13 20:22 | ED.EYEPROB ---
HPI - Eye Problem General Chief complaint: Eye Problems Stated complaint: left ear reddened swollen Time Seen by Provider: 08/13/22 22:57 Source: patient Mode of arrival: ambulatory Limitations: no limitations History of Present Illness HPI Narrative: 36-year-old female presents with redness and irritation to left eye for the past 3 days. Patient reports she intermittently feels like there may be a foreign body in her eye. Patient does not wear contact lenses. She reports that in the morning when she wakes upper left eyes very crusty, denies changes in vision or painful eye movements. No one else at home with similar symptoms. Patient denies fevers, chills, chest pain, shortness of breath, nausea, vomiting, cough. Related Data Previous Rx's Medication Instructions Recorded cyclobenzaprine 5 mg tablet 5 mg PO Q8H PRN pain (scale score 07/30/21 7-10) 5 days #14 tabs lidocaine 5 % topical patch 1 patch topical DAILY PRN pain #30 07/30/21 (Lidoderm) ea naproxen 500 mg tablet 500 mg PO BID PRN pain 10 days #20 07/30/21 tabs naproxen 500 mg tablet (Naprosyn) 500 mg PO BID #20 tabs 05/08/22 benzonatate 200 mg capsule 200 mg PO TID PRN cough #30 caps 05/13/22 dexamethasone 6 mg tablet 6 mg PO DAILY #6 tabs 05/13/22 ibuprofen 600 mg tablet 600 mg PO Q6H PRN fever or pain 05/13/22 #30 tabs ibuprofen 600 mg tablet 600 mg PO TID PRN fever or pain 06/26/22 #14 tabs erythromycin 5 mg/gram (0.5 %) eye 1 appl ophthalmic (eye) DAILY #3.5 08/13/22 ointment grams Allergies Allergy/AdvReac Type Severity Reaction Status Date / Time Sulfa (Sulfonamide Allergy Rash Verified 06/26/22 20:42 Antibiotics) Review of Systems Review of Systems: Constitutional : No Weight loss, No Fever, No Chills, No Fatigue, No Malaise ENT/Mouth : No sore throat, No Rhinorrhea Eyes: No Eye Pain, No Swelling, + Redness Cardiovascular : No Chest Pain, No SOB, No Dyspnea on Exertion, No Orthopnea, No Edema, No Palpitations Respiratory : No Cough, No Sputum, No Wheezing Gastrointestinal : No Nausea, No Vomiting, No Diarrhea, No Constipation, No abdominal Pain, No Hematochezia, No Melena Genitourinary : No Dysuria, No Urinary Frequency, No Hematuria, Musculoskeletal : No joint pain, No Myalgias, No Joint Swelling Skin : No Skin Lesions, No rash Neuro : No Weakness, No Numbness, No Dizziness, No Headache Psych : No Anxiety/Panic, No Depression All other systems reviewed and are negative Yes all other systems are reviewed and are negative [facility] Past Medical History Attestation statement: The following information was validated with the patient. Source: old records reviewed and nursing notes reviewed Social History Social History Advance Directives: No Advance Directives Information Provided: No Physical Exam Vital Signs: Vital Signs: Last Vital Signs Temp 99.1 F 08/13/22 20:23 Pulse 90 08/13/22 20:23 Resp 18 08/13/22 20:23 BP 113/75 08/13/22 20:23 Pulse Ox 98 08/13/22 20:23 O2 Del Method Room Air 08/13/22 20:23 BMI result Body Mass Index 27.8 vss Appearance: Alert.? Oriented X3.? No acute distress.? Head: Normocephalic, atraumatic, no step-offs or deformities Eyes: Pupils equal, round and reactive to light.?+ L conjuntiva injected. EOMI pain free. ENT: Pharynx normal.? Neck: Normal inspection.? Neck supple.? CVS: Normal heart rate and rhythm.? Pulses normal.? Respiratory: No respiratory distress.? Breath sounds normal.? Abdomen: Soft and nontender.? Skin: Skin warm and dry.? Normal skin color.? Normal skin turgor.? Extremities: No lower extremity edema.? No calf ttp. 5/5 strength to bilateral upper and lower extremities Neuro: Oriented X 3.? No motor deficit.? No sensory deficit. CN 2-12 intact Course Course Course Narrative: This is a rapid medical exam. Deferred additional HPI, ROS, PE to primary provider. 36 yo female healthy here with left eye redness, drainage, crusting, pain and swelling with no known injury x 5days. No use of contacts. WIll need visual acuity and eye exam. VSS Reevaluation(s) Reevaluation #1: Normal fluorescein stain. No uptake. Negative Tonie sign. Patient tolerated procedure well. Will give erythromycin here and discharged home with same. Will have her follow-up with ophthalmology. Educated patient on diagnosis and treatment plan, answered all question, patient verbalizes understanding. At this time patient will be discharged home, advised to return with new or worsening symptoms. Educated on worrisome signs and symptoms and when to return. At this time I feel comfortable discharge home. Time: 23:12 Medical Decision Making Medical Decision Making [facility] Narrative: 36-year-old female presents with a red irritated I since Wednesday, 3 days ago. Physical exam significant for Pupils equal, round and reactive to light.?+ L conjuntiva injected. EOMI pain free. Concerns for bacterial conjunctivitis versus allergic conjunctivitis. Unlikely corneal ulcer, corneal abrasion, globe rupture, acute closed angle glaucoma, wet macular degeneration, orbital or periorbital cellulitis. No signs of herpetic keratosis. Plan fluorescein stain, visual acuity. Differential Diagnosis Differential Diagnoses: The differential diagnosis associated with the presentation includes Concerns for bacterial conjunctivitis versus allergic conjunctivitis. Unlikely corneal ulcer, corneal abrasion, globe rupture, acute closed angle glaucoma, wet macular degeneration, orbital or periorbital cellulitis. No signs of herpetic keratosis. Admission/Observation Consideration of admission/observation: Escalation of care including admission/observation considered Not indicated Core Measures AMI core measures followed: Yes Measure exclusions: not indicated Critical Care Time Critical Care Time Critical Care Time: No Discharge Plan Discharge Clinical Impression: Bacterial conjunctivitis Patient Disposition: Home, Self-Care Instructions: Conjunctivitis (ED) Additional Instructions: Take your medications as prescribed. If you were prescribed antibiotics today, it is important that you take your medication to their entirety, do not skip any doses, do not finish them early. Follow-up with your primary care provider this week. Return to the emergency department with new or worsening symptoms. Such as fevers, chills, chest pain, shortness of breath, nausea, vomiting, dizziness, headache, vision changes, lethargy In case of emergency call 911 Follow-up with ophthalmology. Prescriptions: New erythromycin 5 mg/gram (0.5 %) ointment 1 appl ophthalmic (eye) DAILY Qty: 3.5 0RF No Action naproxen [Naprosyn] 500 mg tablet 500 mg PO BID Qty: 20 0RF benzonatate 200 mg capsule 200 mg PO TID PRN (Reason: cough) Qty: 30 0RF dexamethasone 6 mg tablet 6 mg PO DAILY Qty: 6 0RF ibuprofen 600 mg tablet 600 mg PO Q6H PRN (Reason: fever or pain) Qty: 30 0RF lidocaine [Lidoderm] 5 % adhesive patch,medicated 1 patch topical DAILY MDD remove after 12 hours PRN (Reason: pain) Qty: 30 0RF Rx Instructions: leave on most painful area for up to 12 hrs naproxen 500 mg tablet 500 mg PO BID PRN (Reason: pain) 10 Days Qty: 20 0RF cyclobenzaprine 5 mg tablet 5 mg PO Q8H PRN (Reason: pain (scale score 7-10)) 5 Days Qty: 14 0RF ibuprofen 600 mg tablet 600 mg PO TID PRN (Reason: fever or pain) Qty: 14 0RF Referrals: Physician,Unknown J [Primary Care Provider] - 2 days George Cisneros [Physician] - 1 day Stand Alone Forms: Work/School Release
[2022-08-13 20:23] VITALS: BP 113/75; PULSE 90; RESP 18; TEMP 37.3; O2SAT 98; BMI 27.8
[2022-08-13] MEDS: Fluorescein Sodium STRIP 1 STRIP EYE-BOTH (23:18)
[2022-08-13] MEDS: Tetracaine HCl/PF 0.5% Oph Sol 4 ML DROPS 3 DROP EYE-BOTH (23:18)
[2022-08-13] MEDS: Erythromycin Base 0.5% Oph Oin 1 GM TUBE 1 CM EYE-BOTH (23:18)
== END 2022-08-13 23:35 | disposition home or self-care (01) ==
PROVIDERS: Emergency Provider Emergency Medicine
DX: H10.32 Unspecified acute conjunctivitis, left eye (principal); Z79.899 Other long term (current) drug therapy
CPT/HCPCS: 99282; 99283

== ENCOUNTER 2024-04-01 22:33 | Emergency (ER) | payer OTHER, SELFPAY ==
--- NOTE | ~2024-04-01 | XR_ITS ---
CLINICAL HISTORY: chest pain 1 view chest x-ray Comparison: CR/SR - XR CHEST 2V - 05/08/22 00:12 EST Findings: No consolidation or effusion. Prominent cardiac silhouette. No acute fracture. IMPRESSION: 1. No acute findings. This document has been electronically signed by: Nando Martines MD on 04/02/2024 04:14:09
--- NOTE | 2024-04-01 22:36 | ECG_ITS ---
Test Reason : CHEST PAIN Blood Pressure : */* mmHG Vent. Rate : 89 BPM Atrial Rate : 89 BPM P-R Int : 144 ms QRS Dur : 80 ms QT Int : 376 ms P-R-T Axes : 59 31 26 degrees QTcB Int : 457 ms Normal sinus rhythm Normal ECG When compared with ECG of 07-May-2022 23:00, No significant change was found Referred By: Generic ED Physician Electronically Signed By: KRISTEN SHARPE
[2024-04-01 22:59] VITALS: BP 118/76; PULSE 73; RESP 18; TEMP 37; O2SAT 98; BMI 27.2
[2024-04-01 23:07] LABS: MANUAL DIFF FLAG NO
[2024-04-01 23:08] LABS: Basophils Percent Auto 0.5 % (0-2); Eosinophils Absolute Auto 0.3 X10*3/uL (0.0-0.4); Eosinophils Percent Auto 3.4 % (0-4); Hematocrit 38.3 % (37.0-47.0); Hemoglobin 13.2 g/dl (12.0-16.0); Imm Gran Abs Auto 0.01 X10*3/uL (0.00-0.03); Imm Gran Pct Auto 0.1 % (0.0-0.4); Lymphocytes Absolute Auto 2.5 X10*3/uL (1.2-4.9); Mean Corpuscular HGB Conc 34.5 g/dl (31.0-35.0); Mean Corpuscular Hemoglobin 29.1 pg (27.0-33.0); Mean Corpuscular Volume 84.5 fL (80.0-98.0); Mean Platelet Volume 11.2 fL (9.4-12.3); Monocytes Absolute Auto 0.6 X10*3/uL (0.1-1.2); Monocytes Percent Auto 7.7 % (2-11); Neutrophils Absolute Auto 4.7 x10*3/uL (2.0-8.3); Neutrophils Percent Auto 57.3 % (45-73); Platelet Count 253 X10*3/uL (160-400); Red Blood Count 4.53 X10*6/uL (4.20-5.50); White Blood Count 8.2 X10*3/uL (4.8-10.8)
[2024-04-01 23:26] LABS: Alanine Aminotransferase 27 U/L (0-31); Albumin Level 4.1 g/dL (3.5-5.0); Alkaline Phosphatase 70 U/L (39-117); Anion Gap 9 (12-20); Aspartate Amino Transferase 24 U/L (5-31); Bilirubin Total 0.2 mg/dL (0.0-1.0); Blood Urea Nitrogen 12 mg/dL (9-16); Calcium 8.8 mg/dL (8.4-10.2); Carbon Dioxide 22 mmol/L (22-29); Chloride 110 mmol/L (96-108); Creatinine Clr Calc Pharmacy 90.8; Estimated Glomerular Filt Rate > 60; Glucose Random 99 mg/dL (60-115); Potassium 3.8 mmol/L (3.3-5.1); Sodium 137 mmol/L (135-145); Total Protein 7.3 g/dL (6.5-8.0)
[2024-04-01 23:37] LABS: Troponin-I High Sensitivity < 2.7 ng/L (<3.5-17.0)
[2024-04-01 23:44] LABS: Influenza A PCR NEGATIVE (Negative); Influenza B PCR NEGATIVE (Negative); Resp Syncy Virus RNA Qual PCR NEGATIVE (Negative); SARS COV2 PCR INHOUSE NEGATIVE (Negative)
[2024-04-02 02:09] VITALS: BP 115/67; PULSE 58; RESP 16; TEMP 36.7; O2SAT 96
[2024-04-02 03:52] LABS: Troponin-I High Sensitivity < 2.7 ng/L (<3.5-17.0)
[2024-04-02 04:32] VITALS: BP 112/65; PULSE 66; RESP 16; TEMP 36.4; O2SAT 96
--- NOTE | 2024-04-02 07:25 | ED_ITS ---
HPI - General Adult General Chief complaint: General Medical Stated complaint: Migraine, sinus, chest pain Time Seen by Provider: 04/02/24 06:36 Source: patient, RN notes reviewed and old records reviewed Mode of arrival: ambulatory History of Present Illness ED Provider: Krystina Ladd PA-C HPI narrative: 38-year-old female with no significant past medical history presenting to the ED complaining of intermittent chest pain since yesterday with associated SOB & nausea, and sinus pressure x1 month. Admits to history of anxiety. Denies chest pain at present. Denies recent illness including fever, chills, cough, travel, sick contacts, lightheadedness/dizziness, sore throat, ear pain Related Data Previous Rx's ?Medication ?Instructions ?Recorded cyclobenzaprine 5 mg tablet 5 mg PO Q8H PRN pain (scale score 07/30/21 7-10) 5 days #14 tabs lidocaine 5 % topical patch 1 patch topical DAILY PRN pain #30 07/30/21 (Lidoderm) ea naproxen 500 mg tablet 500 mg PO BID PRN pain 10 days #20 07/30/21 tabs naproxen 500 mg tablet (Naprosyn) 500 mg PO BID #20 tabs 05/08/22 benzonatate 200 mg capsule 200 mg PO TID PRN cough #30 caps 05/13/22 dexamethasone 6 mg tablet 6 mg PO DAILY #6 tabs 05/13/22 ibuprofen 600 mg tablet 600 mg PO Q6H PRN fever or pain 05/13/22 #30 tabs ibuprofen 600 mg tablet 600 mg PO TID PRN fever or pain 06/26/22 #14 tabs erythromycin 5 mg/gram (0.5 %) eye 1 appl ophthalmic (eye) DAILY #3.5 08/13/22 ointment grams amoxicillin 875 mg tablet 875 mg PO BID 7 days #14 tabs 04/02/24 fluticasone propionate 50 2 spray intranasal DAILY #16 grams 04/02/24 mcg/actuation nasal spray,suspension (Flonase Allergy Relief) Allergies Allergy/AdvReac Type Severity Reaction Status Date / Time Sulfa (Sulfonamide Allergy Rash Verified 04/01/24 23:02 Antibiotics) Review of Systems 2 Review of Systems: Yes all other systems are reviewed and are negative Constitutional: Constitutional: Reports as per [facility] Past Medical History Attestation statement: The following information was validated with the patient. Source: old records reviewed Social History Social History Smoked in Last 30 Days: No Use of substances other than those prescribed or required for medical reasons: No Advance Directives: No Advance Directives Information Provided: Yes Do you have a plan to hurt others: No Plan Patient : No Physical Exam ED Vital Signs: Vital Signs - 24 hr 04/01/24 22:59 04/02/24 02:09 04/02/24 04:32 Temperature 98.6 F 98.0 F 97.6 F Pulse Rate 73 58 66 Respiratory Rate 18 16 16 Blood Pressure 118/76 115/67 112/65 Pulse Oximetry 98 96 96 Oxygen Delivery Method Room Air Room Air Room Air BMI result Body Mass Index 27.2 Const General: cooperative, healthy appearing and no acute distress Orientation/consciousness: patient oriented x3 Limitations: no limitations HENMT Head: Yes normal to inspection and Yes atraumatic Ears: hearing grossly normal bilaterally, external ears normal, TM's normal bilaterally and mastoids normal General nose exam: Normal external nose present Face and sinus: Yes normal facial exam and Yes sinus tenderness (Maxillary) Mouth: no drooling Throat: Yes posterior oropharynx normal, Yes tonsils normal, Yes uvula midline, No uvula laterally displaced and No uvular edema Eyes General: appearance normal, both eyes and all related structures Pupils: Equal, round and reactive pupils present EOM: EOMs intact bilaterally Neck Neck: Yes normal visual inspection and Yes no meningeal signs Resp Effort & Inspection: normal respiratory effort, no respiratory distress and no stridor Auscultation: clear to auscultation bilaterally, no crackles and no wheezes Cardio Rate: regular rate Heart sounds: S1 normal heart sound present and S2 normal heart sound present GI Inspection: Yes normal to inspection Palpation (GI): Soft to palpation, nontender, no guarding and not rigid Skin Rashes: no rashes Wounds: no wounds Neuro General: patient oriented x3, tone normal and no meningeal signs Cranial nerves: Yes CN's II-XII intact bilaterally and Yes Equal, round and reactive pupils present Gait exam (Neuro): Normal gait present Extrem General: Yes normal to inspection Course Course Course Narrative: -labs reassuring. Troponin x2 negative. COVID/flu/RSV negative -CXR unremarkable Results discussed with patient including worrisome signs and symptoms and strict return precautions, and when to return to the emergency department. They verbalized understanding and feel safe for discharge at this time. Medical Decision Making Medical Decision Making MDM Narrative: 38-year-old female with no significant past medical history presenting to the ED complaining of intermittent chest pain since yesterday with associated SOB & nausea, and sinus pressure x1 month. On exam vital signs stable, NAD, nontoxic appearing, sinus pressure appreciated, lungs CTA, abdomen soft/nontender. Exam otherwise nonfocal. Concern for viral illness vs atypical ACS vs sinusitis. No evidence of acute otitis media/externa, mastoiditis, DIRECTOR EDUCATION/retropharyngeal abscess. Lower suspicion for PE/DVT or dissection Plan: EKG, labs, CXR, viral testing Please refer to course for remaining clinical decision making, interpretation of labs/imaging results, and discussions with consultants and/or family members. Differential Diagnosis Differential Diagnoses: The differential diagnosis associated with the presentation includes As above Admission/Observation Consideration of admission/observation: Escalation of care including admission/observation considered Lab Data [facility] Lab Attestation statement: I reviewed the patient's lab results. 04/01/24 23:06 04/01/24 23:06 Labs: Lab Results 04/01/24 04/02/24 Range/Units 23:06 03:22 WBC 8.2 (4.8-10.8) X10*3/uL RBC 4.53 (4.20-5.50) X10*6/uL Hgb 13.2 (12.0-16.0) g/dl Hct 38.3 (37.0-47.0) % MCV 84.5 (80.0-98.0) fL MCH 29.1 (27.0-33.0) pg MCHC 34.5 (31.0-35.0) g/dl RDW 12.0 (11.0-16.0) % Plt Count 253 (160-400) X10*3/uL MPV 11.2 (9.4-12.3) fL Immature Gran % (Auto) 0.1 (0.0-0.4) % Neut % (Auto) 57.3 (45-73) % Lymph % (Auto) 31.0 (20-40) % [place] % (Auto) 7.7 (2-11) % Eos % (Auto) 3.4 (0-4) % Baso % (Auto) 0.5 (0-2) % Lymph # (Auto) 2.5 (1.2-4.9) X10*3/uL [place] # (Auto) 0.6 (0.1-1.2) X10*3/uL Eos # (Auto) 0.3 (0.0-0.4) X10*3/uL Baso # (Auto) 0.0 (0.0-0.2) X10*3/uL Abs Immat Gran (auto) 0.01 (0.00-0.03) X10*3/uL Absolute Neuts (auto) 4.7 (2.0-8.3) x10*3/uL Absolute Nucleated RBC 0.000 (0.0-0.012) X10*3/uL Nucleated RBC % (auto) 0.0 (0.0-0.2) /100WBC Sodium 137 (135-145) mmol/L Potassium 3.8 (3.3-5.1) mmol/L Chloride 110 H (96-108) mmol/L Carbon Dioxide 22 (22-29) mmol/L Anion Gap 9 L (12-20) BUN 12 (9-16) mg/dL Creatinine 0.83 (0.5-1.4) mg/dL Estim Creat Clear Calc 90.8 Estimated GFR > 60 Random Glucose 99 (60-115) mg/dL Calcium 8.8 D (8.4-10.2) mg/dL Total Bilirubin 0.2 (0.0-1.0) mg/dL AST 24 (5-31) U/L ALT 27 (0-31) U/L Alkaline Phosphatase 70 (39-117) U/L Troponin I High Sens < 2.7 < 2.7 (<3.5-17.0) ng/L Total Protein 7.3 (6.5-8.0) g/dL Albumin 4.1 (3.5-5.0) g/dL Influenza Type A (PCR) NEGATIVE (Negative) Influenza Type B (PCR) NEGATIVE (Negative) RSV RNA Qual (PCR) NEGATIVE (Negative) SARS-CoV-2 RNA (RT-PCR) NEGATIVE (Negative) Independent Interpretation I performed an independent interpretation of an: EKG (My interpretation EKG normal sinus rhythm rate of 89. NM interval 144. No significant change when compared to prior. No STEMI) Radiology Impression Discussion of test interpretation with radiology: I have reviewed the radiologist's reading. External Record Review External record reviewed: Inpatient record, Office record, Outpatient record, Prior outpatient labs, Prior outpatient radiology, Primary care record and Outside ED record Tests considered The following testing was considered but not selected: As above Prescription Management I considered prescription management with: Pain Medication and Antibiotic Chronic Conditions Patient?s care impacted by: Other Social Determinants Patient?s care significantly limited by Social Determinants of Health including: Other Social Determinant of Health Discharge Plan Discharge Clinical Impression: Sinusitis Patient Disposition: Home, Self-Care Instructions: Sinusitis (ED) Additional Instructions: Your blood work, x-ray, and viral testing was reassuring You likely have sinusitis. Amoxicillin as an antibiotic please take as prescribed In addition use Flonase nasal spray as needed Follow-up with your primary care doctor as well as Cardiology. Call to make an appointment If her symptoms persist or worsen you have constant worsening chest pain, shortness of breath, lightheadedness/dizziness return the ED Prescriptions: New amoxicillin 875 mg tablet 875 mg PO BID 7 Days Qty: 14 0RF fluticasone propionate [Flonase Allergy Relief] 50 mcg/actuation spray,suspension 2 spray intranasal DAILY Qty: 16 0RF Rx Instructions: administer into each nostril No Action naproxen [Naprosyn] 500 mg tablet 500 mg PO BID Qty: 20 0RF benzonatate 200 mg capsule 200 mg PO TID PRN (Reason: cough) Qty: 30 0RF dexamethasone 6 mg tablet 6 mg PO DAILY Qty: 6 0RF ibuprofen 600 mg tablet 600 mg PO Q6H PRN (Reason: fever or pain) Qty: 30 0RF lidocaine [Lidoderm] 5 % adhesive patch,medicated 1 patch topical DAILY MDD remove after 12 hours PRN (Reason: pain) Qty: 30 0RF Rx Instructions: leave on most painful area for up to 12 hrs naproxen 500 mg tablet 500 mg PO BID PRN (Reason: pain) 10 Days Qty: 20 0RF cyclobenzaprine 5 mg tablet 5 mg PO Q8H PRN (Reason: pain (scale score 7-10)) 5 Days Qty: 14 0RF ibuprofen 600 mg tablet 600 mg PO TID PRN (Reason: fever or pain) Qty: 14 0RF erythromycin 5 mg/gram (0.5 %) ointment 1 appl ophthalmic (eye) DAILY Qty: 3.5 0RF Referrals: [facility] [Provider Group] - 1 week Physician,Unknown J [Primary Care Provider] - Print Language: Trinidadian
[2024-04-02 07:58] VITALS: BP 120/62; PULSE 62; RESP 18; TEMP 36.4; O2SAT 97
[2024-04-02 07:59] VITALS: BP 120/62; PULSE 62; RESP 18; TEMP 36.4; O2SAT 97
== END 2024-04-02 07:59 | disposition home or self-care (01) ==
PROVIDERS: Emergency Provider Emergency Medicine
DX: J32.9 Chronic sinusitis, unspecified (principal); G43.909 Migraine, unspecified, not intractable, without status migrainosus; R07.89 Other chest pain; R06.02 Shortness of breath; R11.0 Nausea; Z03.818 Encounter for observation for suspected exposure to other biological agents ruled out
CPT/HCPCS: 0241U; 36415; 71045; 80053; 84484; 85025; 93005; 99284

== ENCOUNTER → 2024-04-01 22:36 | Outpatient (BNV) | payer OTHER, SELFPAY | PROVIDERS: Emergency Provider Emergency Medicine; Visit Provider Internal Medicine | DX: R07.9 Chest pain, unspecified (principal) | CPT/HCPCS: 93010 ==

== ENCOUNTER → 2024-04-02 03:20 | Outpatient (BNV) | payer OTHER, SELFPAY | PROVIDERS: Visit Provider Radiology Diagnostic Radiology | DX: R07.9 Chest pain, unspecified (principal) | CPT/HCPCS: 71045 ==

== ENCOUNTER 2024-04-21 12:37 | Emergency (ER) | payer OTHER, SELFPAY ==
[2024-04-21 13:25] VITALS: BP 118/81; PULSE 87; RESP 20; TEMP 37.2; O2SAT 97; BMI 27.0
[2024-04-21 14:17] LABS: IDNOW Serial# 58CA691E; Strep A Nucleic Acid Negative (Negative)
[2024-04-21 14:35] LABS: Influenza A PCR NEGATIVE (Negative); Influenza B PCR NEGATIVE (Negative); Resp Syncy Virus RNA Qual PCR NEGATIVE (Negative); SARS COV2 PCR INHOUSE NEGATIVE (Negative)
--- NOTE | 2024-04-21 14:45 | ED_ITS ---
HPI - URI/Sore Throat General Chief Complaint: Upper Respiratory Symptoms Stated Complaint: Sore throat, headache Time Seen by Provider: 04/21/24 14:45 Source: patient and old records reviewed Mode of arrival: ambulatory Limitations: no limitations History of Present Illness ED Provider: NELL FABIAN Narrative: 38 yo female no sig PMH here with L ear pain and L throat pain with subjective fevers and chills. 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 Took motrin this AM MD elicited complaint: sore throat and other (ear pain) Onset (ago): day(s) (1) Consistency: constant Severity: moderate Description of mucous: clear Able to tolerate fluids by mouth: Yes Exacerbating factors: swallowing Relieving factors: nothing Associated symptoms: fever, chills, headache, sore throat and ear pain Treatments prior to arrival: ibuprofen Related Data Previous Rx's ?Medication ?Instructions ?Recorded cyclobenzaprine 5 mg tablet 5 mg PO Q8H PRN pain (scale score 07/30/21 7-10) 5 days #14 tabs lidocaine 5 % topical patch 1 patch topical DAILY PRN pain #30 07/30/21 (Lidoderm) ea naproxen 500 mg tablet 500 mg PO BID PRN pain 10 days #20 07/30/21 tabs naproxen 500 mg tablet (Naprosyn) 500 mg PO BID #20 tabs 05/08/22 benzonatate 200 mg capsule 200 mg PO TID PRN cough #30 caps 05/13/22 dexamethasone 6 mg tablet 6 mg PO DAILY #6 tabs 05/13/22 ibuprofen 600 mg tablet 600 mg PO Q6H PRN fever or pain 05/13/22 #30 tabs ibuprofen 600 mg tablet 600 mg PO TID PRN fever or pain 06/26/22 #14 tabs erythromycin 5 mg/gram (0.5 %) eye 1 appl ophthalmic (eye) DAILY #3.5 08/13/22 ointment grams amoxicillin 875 mg tablet 875 mg PO BID 7 days #14 tabs 04/02/24 fluticasone propionate 50 2 spray intranasal DAILY #16 grams 04/02/24 mcg/actuation nasal spray,suspension (Flonase Allergy Relief) azithromycin 250 mg tablet See Rx Instructions PO .COMPLEX #6 04/21/24 tabs Allergies Allergy/AdvReac Type Severity Reaction Status Date / Time Sulfa (Sulfonamide Allergy Rash Verified 04/21/24 13:26 Antibiotics) Review of Systems Review of Systems: Constitutional : No Fever, No Chills, No Fatigue ENT/Mouth : pos sore throat, No Rhinorrhea, pos ear pain Eyes: No Eye Pain, No Swelling, No Redness Cardiovascular : No Chest Pain, No SOB, No Dyspnea on Exertion Respiratory : No Cough, No Sputum Gastrointestinal : No Nausea, No Vomiting, No Diarrhea, No abdominal Pain Genitourinary : No Dysuria, No Urinary Frequency, No Hematuria, Musculoskeletal : No joint pain, No Myalgias, No Joint Swelling Skin : No Skin Lesions, No rash Neuro : No Weakness, No Numbness, No Dizziness, no Headache All other systems reviewed and are negative [facility] Past Medical History Attestation statement: The following information was validated with the patient. Source: old records reviewed Medical History COVID-19 Social History Social History (Updated 04/21/24 @ 14:58 by Adeline Yen DO) Patient Tobacco Use Status: Never used Tobacco Physical Exam Vital Signs: Vital Signs: Last Vital Signs Temp 98.9 F 04/21/24 13:25 Pulse 87 04/21/24 13:25 Resp 20 04/21/24 13:25 BP 118/81 04/21/24 13:25 Pulse Ox 97 04/21/24 13:25 O2 Del Method Room Air 04/21/24 13:25 BMI result Body Mass Index 27.0 Appearance: Alert. Oriented X3. No acute distress. Eyes: Pupils equal, round and reactive to light. ENT: Pharynx erythema exudates on L tonsil with mild swelling uvula is midline, clear effusion of L ear Neck: Normal inspection. Neck supple. CVS: Normal heart rate and rhythm. Pulses normal. Respiratory: No respiratory distress. Breath sounds normal. Abdomen: Soft and nontender. Skin: Skin warm and dry. Normal skin color. Normal skin turgor. Extremities: No lower extremity edema. No calf ttp Neuro: Oriented X 3. No motor deficit. No sensory deficit. CN2-12 intact Medical Decision Making Medical Decision Making MDM Narrative: 38 yo female otherwise healthy here with c/o L ear pain and sore throat on exam L tonsil is red swollen with exudates no issues breathing or swallowing no sublingual or submandibular swelling. Will obtain strep swab and viral panel. Her L ear has effusion but no signs of infection. Suspect tonsillitis. Will DC home with return precautions given unilateral tonsillar infection will start on zpak Differential Diagnosis Differential Diagnoses: The differential diagnosis associated with the presentation includes viral syndrome, AOM, tonsilitis Admission/Observation Consideration of admission/observation: Escalation of care including admission/observation considered not toxic, tolerating PO stable for DC Lab Data [facility] Lab Attestation statement: I reviewed the patient's lab results. Labs: Lab Results 04/21/24 Range/Units 13:45 Influenza Type A (PCR) NEGATIVE (Negative) Influenza Type B (PCR) NEGATIVE (Negative) RSV RNA Qual (PCR) NEGATIVE (Negative) SARS-CoV-2 RNA (RT-PCR) NEGATIVE (Negative) S. pyogenes GrpA SHARIFA Negative (Negative) External Record Review External record reviewed: Outpatient record Prescription Management I considered prescription management with: Antibiotic Discharge Plan Discharge Clinical Impression: Acute tonsillitis Qualifiers: Pharyngitis/tonsillitis etiology: unspecified etiology Qualified Code(s): J03.90 - Acute tonsillitis, unspecified Patient Disposition: Home, Self-Care Instructions: Tonsillitis (ED) Additional Instructions: rest and stay hydrated return for any worsening symptoms or concerns negative for flu, covid, rsv On azithromycin, call your provider if you develop new ringing in your ears, new problems hearing, dizziness, palpitations, abdominal pain, nausea, or diarrhea. Prescriptions: New azithromycin 250 mg tablet See Rx Instructions .ROUTE .COMPLEX Qty: 6 0RF Rx Instructions: For 250 mg dose pack: take 500 mg today (day 1), then 250 mg for 4 days (days 2-5) No Action naproxen [Naprosyn] 500 mg tablet 500 mg PO BID Qty: 20 0RF benzonatate 200 mg capsule 200 mg PO TID PRN (Reason: cough) Qty: 30 0RF dexamethasone 6 mg tablet 6 mg PO DAILY Qty: 6 0RF ibuprofen 600 mg tablet 600 mg PO Q6H PRN (Reason: fever or pain) Qty: 30 0RF lidocaine [Lidoderm] 5 % adhesive patch,medicated 1 patch topical DAILY MDD remove after 12 hours PRN (Reason: pain) Qty: 30 0RF Rx Instructions: leave on most painful area for up to 12 hrs naproxen 500 mg tablet 500 mg PO BID PRN (Reason: pain) 10 Days Qty: 20 0RF cyclobenzaprine 5 mg tablet 5 mg PO Q8H PRN (Reason: pain (scale score 7-10)) 5 Days Qty: 14 0RF ibuprofen 600 mg tablet 600 mg PO TID PRN (Reason: fever or pain) Qty: 14 0RF amoxicillin 875 mg tablet 875 mg PO BID 7 Days Qty: 14 0RF fluticasone propionate [Flonase Allergy Relief] 50 mcg/actuation spray,suspension 2 spray intranasal DAILY Qty: 16 0RF Rx Instructions: administer into each nostril erythromycin 5 mg/gram (0.5 %) ointment 1 appl ophthalmic (eye) DAILY Qty: 3.5 0RF Stand Alone Forms: Work/School Release Print Language: Lithuanian
--- OUTSIDE RECORDS SUMMARY | 2024-04-21 14:53 | XMS_ITS | Clinical Summary ---
Author Organization [facility] it[facility] Address [address] [place] [address] Care Team Providers Care Associate Research Scientist Name Role Phone Unavailable Primary Care Provider Unavailabl e Social History Tobacco Use Types Packs/Day Years Used Date Smoking Tobacco: Never Assessed Sex and Gender Information Value Date Recorded Sex Assigned at Not on file Gender Identity Not on file Sexual Orientation Not on file Plan of Treatment Health Maintenance Due Date Last Done Comments Breast Cancer Screening 1983 DTaP,Tdap,and Td Vaccines (1 - Tdap) 11/13/2002 Hepatitis B Vaccines (1 of 3 - 19+ 3-dose series) 11/13/2002 Cervical Cancer Screening: P ap Smear 11/13/2004 Depression Screening 04/20/2023 HIV Screening 04/20/2023 Hepatitis C Screening 04/20/2023 Social Influencers of Health Screening 04/20/2023 COVID-19 Vaccine (2023-2 5 season) 2023 Influenza Vaccine (#1) 2023 HIB Vaccines Aged Out No longer eligi ble based on patient's age to complete this topic HPV Vaccines Aged Out No longer eligi ble based on patient's age to complete this topic Hepatitis A Vaccines Aged Out No long er eligible based on patient's age to complete this topic IPV Vaccines Aged Out No longer eligi ble based on patient's age to complete this topic MMR Vaccines Aged Out No longer eligi ble based on patient's age to complete this topic Meningococcal ACWY Vaccine Aged Out N o longer eligible based on patient's age to complete this topic Pneumococcal Vaccine: Pediat rics (0 to 5 Years) and At-Risk Patients (6 to 64 Years) Aged Out No longer eligible b ased on patient's age to complete this topic RSV Immunization Patients Un julien 20 months Aged Out No longer eligible b ased on patient's age to complete this topic Varicella Vaccines Aged Out No longer eligible based on patient's age to complete this topic
[2024-04-21 14:54] VITALS: BP 118/81; PULSE 87; RESP 20; TEMP 37.2; O2SAT 97
== END 2024-04-21 14:54 | disposition home or self-care (01) ==
PROVIDERS: Emergency Provider Emergency Medicine
DX: J03.90 Acute tonsillitis, unspecified (principal); H92.02 Otalgia, left ear; R50.9 Fever, unspecified; R51.9 Headache, unspecified; Z03.818 Encounter for observation for suspected exposure to other biological agents ruled out
CPT/HCPCS: 0241U; 87651; 99282; 99283

== ENCOUNTER 2024-04-30 14:11 | Emergency (ER) | payer OTHER, SELFPAY ==
[2024-04-30 15:00] VITALS: BP 138/75; PULSE 69; RESP 18; TEMP 36.2; O2SAT 98; BMI 27.4
--- NOTE | 2024-04-30 15:02 | ED.EYEPROB ---
HPI - Eye Problem General Chief complaint: Eye Problems Stated complaint: eye allergy Related Data Previous Rx's ?Medication ?Instructions ?Recorded cyclobenzaprine 5 mg tablet 5 mg PO Q8H PRN pain (scale score 07/30/21 7-10) 5 days #14 tabs lidocaine 5 % topical patch 1 patch topical DAILY PRN pain #30 07/30/21 (Lidoderm) ea naproxen 500 mg tablet 500 mg PO BID PRN pain 10 days #20 07/30/21 tabs naproxen 500 mg tablet (Naprosyn) 500 mg PO BID #20 tabs 05/08/22 benzonatate 200 mg capsule 200 mg PO TID PRN cough #30 caps 05/13/22 dexamethasone 6 mg tablet 6 mg PO DAILY #6 tabs 05/13/22 ibuprofen 600 mg tablet 600 mg PO Q6H PRN fever or pain 05/13/22 #30 tabs ibuprofen 600 mg tablet 600 mg PO TID PRN fever or pain 06/26/22 #14 tabs erythromycin 5 mg/gram (0.5 %) eye 1 appl ophthalmic (eye) DAILY #3.5 08/13/22 ointment grams amoxicillin 875 mg tablet 875 mg PO BID 7 days #14 tabs 04/02/24 fluticasone propionate 50 2 spray intranasal DAILY #16 grams 04/02/24 mcg/actuation nasal spray,suspension (Flonase Allergy Relief) azithromycin 250 mg tablet See Rx Instructions PO .COMPLEX #6 04/21/24 tabs Allergies Allergy/AdvReac Type Severity Reaction Status Date / Time Sulfa (Sulfonamide Allergy Rash Verified 04/30/24 15:06 Antibiotics) [facility] Past Medical History Medical History COVID-19 Social History Social History (Updated 04/21/24 @ 14:58 by Adeline Yen DO) Patient Tobacco Use Status: Never used Tobacco Physical Exam Vital Signs: Vital Signs: Last Vital Signs Temp 97.2 F 04/30/24 15:00 Pulse 69 04/30/24 15:00 Resp 18 04/30/24 15:00 BP 138/75 04/30/24 15:00 Pulse Ox 98 04/30/24 15:00 O2 Del Method Room Air 04/30/24 15:00 BMI result Body Mass Index 27.4 Course Course Course Narrative: This is an RME performed by Ingrid Manriquez CNP: Additional HPI, ROS, PE not included below will be deferred to primary provider. Patient is a 38-year-old female who presents emergency department for evaluation she states she has been having 2 weeks with a left eye allergy. The eye has been very itchy she has been rubbing and scratching at it a lot. She has used [id number] artificial tears without much improvement. She reports that today her left eyelid was stuck shut and she had to soak it to open it. She has a foreign body sensation to the eye like as if there was sand in it . On examination has conjunctivitis, given excessive scratching and itchiness to the eye concern for possible corneal abrasion for which he will require further evaluation. She also states she has been having nasal congestion for the past 2 months unrelieved with OTC medications denies any sinus pain or pressure, denies any postnasal drip or productive cough. RME: Placed in waiting room pending bed availability for further eye examination Reevaluation(s) Reevaluation #1: LWCT Discharge Plan Discharge Clinical Impression: Eye abnormalities Patient Disposition: Left W/O Completing Treatment Prescriptions: No Action naproxen [Naprosyn] 500 mg tablet 500 mg PO BID Qty: 20 0RF benzonatate 200 mg capsule 200 mg PO TID PRN (Reason: cough) Qty: 30 0RF dexamethasone 6 mg tablet 6 mg PO DAILY Qty: 6 0RF ibuprofen 600 mg tablet 600 mg PO Q6H PRN (Reason: fever or pain) Qty: 30 0RF lidocaine [Lidoderm] 5 % adhesive patch,medicated 1 patch topical DAILY MDD remove after 12 hours PRN (Reason: pain) Qty: 30 0RF Rx Instructions: leave on most painful area for up to 12 hrs naproxen 500 mg tablet 500 mg PO BID PRN (Reason: pain) 10 Days Qty: 20 0RF cyclobenzaprine 5 mg tablet 5 mg PO Q8H PRN (Reason: pain (scale score 7-10)) 5 Days Qty: 14 0RF ibuprofen 600 mg tablet 600 mg PO TID PRN (Reason: fever or pain) Qty: 14 0RF amoxicillin 875 mg tablet 875 mg PO BID 7 Days Qty: 14 0RF fluticasone propionate [Flonase Allergy Relief] 50 mcg/actuation spray,suspension 2 spray intranasal DAILY Qty: 16 0RF Rx Instructions: administer into each nostril erythromycin 5 mg/gram (0.5 %) ointment 1 appl ophthalmic (eye) DAILY Qty: 3.5 0RF azithromycin 250 mg tablet See Rx Instructions .ROUTE .COMPLEX Qty: 6 0RF Rx Instructions: For 250 mg dose pack: take 500 mg today (day 1), then 250 mg for 4 days (days 2-5)
== END 2024-04-30 21:10 | disposition left against medical advice (07) ==
LOC: HO.ED 20:50
PROVIDERS: Emergency Provider Emergency Medicine
DX: H10.12 Acute atopic conjunctivitis, left eye (principal)
CPT/HCPCS: 99281; 99283

== ENCOUNTER 2024-10-11 19:54 | Emergency (ER) | payer OTHER, SELFPAY ==
[2024-10-11 20:10] VITALS: BP 133/84; PULSE 89; RESP 16; TEMP 36.2; O2SAT 97; BMI 27.7
--- NOTE | 2024-10-11 21:56 | ED.GENADULT ---
HPI - General Adult General Chief complaint: General Medical Stated complaint: stung by 6 bees, ? allergy Time Seen by Provider: 10/11/24 21:37 Source: patient Mode of arrival: ambulatory Limitations: no limitations History of Present Illness ED Provider: HPI narrative: Patient apparently got stung by a bee about 4 hours just prior to arrival cut small red escalona on right thigh right ankle and buttocks no significant itching or hives no history of any allergic reaction in the past Related Data Previous Rx's ?Medication ?Instructions ?Recorded cyclobenzaprine 5 mg tablet 5 mg PO Q8H PRN pain (scale score 07/30/21 7-10) 5 days #14 tabs lidocaine 5 % topical patch 1 patch topical DAILY PRN pain #30 07/30/21 (Lidoderm) ea naproxen 500 mg tablet 500 mg PO BID PRN pain 10 days #20 07/30/21 tabs naproxen 500 mg tablet (Naprosyn) 500 mg PO BID #20 tabs 05/08/22 benzonatate 200 mg capsule 200 mg PO TID PRN cough #30 caps 05/13/22 dexamethasone 6 mg tablet 6 mg PO DAILY #6 tabs 05/13/22 ibuprofen 600 mg tablet 600 mg PO Q6H PRN fever or pain 05/13/22 #30 tabs ibuprofen 600 mg tablet 600 mg PO TID PRN fever or pain 06/26/22 #14 tabs erythromycin 5 mg/gram (0.5 %) eye 1 appl ophthalmic (eye) DAILY #3.5 08/13/22 ointment grams amoxicillin 875 mg tablet 875 mg PO BID 7 days #14 tabs 04/02/24 fluticasone propionate 50 2 spray intranasal DAILY #16 grams 04/02/24 mcg/actuation nasal spray,suspension (Flonase Allergy Relief) azithromycin 250 mg tablet See Rx Instructions PO .COMPLEX #6 04/21/24 tabs diphenhydramine HCl 25 mg capsule 50 mg (2 x 25 mg) PO TID PRN 10/11/24 (Benadryl) allergic reaction #20 caps hydrocortisone 1 % topical cream 1 appl topical TID PRN allergic 10/11/24 reaction #28.35 grams ibuprofen 600 mg tablet 600 mg PO Q6H PRN fever or pain 10/11/24 #30 tabs Allergies Allergy/AdvReac Type Severity Reaction Status Date / Time dog dander (dogs) Allergy Sneezing Verified 10/11/24 20:12 Sulfa (Sulfonamide Allergy Rash Verified 10/11/24 20:12 Antibiotics) Review of Systems Review of Systems: Yes all other systems are reviewed and are negative [facility] Past Medical History Medical History COVID-19 Social History Social History Patient Tobacco Use Status: Never used Tobacco Advance Directives: No Advance Directives Information Provided: No Do you have a plan to hurt others: No Plan Physical Exam ED Vital Signs: Vital Signs - 24 hr 10/11/24 20:10 10/11/24 22:39 Temperature 97.2 F 97.2 F Pulse Rate 89 89 Respiratory Rate 16 16 Blood Pressure 133/84 133/84 Pulse Oximetry 97 97 Oxygen Delivery Method Room Air Room Air BMI result Body Mass Index 27.7 Appearance: Alert. Oriented X3. No acute distress. Eyes: no pallor or icterus ENT: Pharynx normal Oral Mucosa moist tympanic membrane intact no erythema, Neck: Normal inspection. Neck supple. CVS: Normal heart rate and rhythm. Pulses normal. Respiratory: No respiratory distress. Equal air entry bilateral, no wheezing/rales/rhonchi Abd: soft, not tender Skin: Skin warm and dry. Small erythematous lesions less than a dime right buttocks right ankle Extremities: No lower extremity edema, no calf tenderness Neuro: Oriented X 3. Medications Administered Discontinued Medications Generic Name Dose Route Start Last Admin Trade Name Bartq PRN Reason Stop Dose Admin Diphenhydramine HCl 50 mg 10/11/24 21:50 10/11/24 22:20 Diphenhydramine Hcl 25 Mg Capsule PO 10/11/24 21:51 50 mg ONCE ONE Administration Ibuprofen 600 mg 10/11/24 21:50 10/11/24 22:21 Ibuprofen 600 Mg Tablet PO 10/11/24 21:51 600 mg ONCE ONE Administration Medical Decision Making Medical Decision Making [facility] Narrative: Patient is status post bee sting no signs of significant allergic reaction will give Benadryl and hydrocortisone cream Discharge Plan Discharge Clinical Impression: Bee sting Patient Disposition: Home, Self-Care Instructions: Insect Bite or Sting (ED) Additional Instructions: Local care as advised Benadryl and ibuprofen as prescribed Report to the ER/PCP if worsening of the rash Prescriptions: New diphenhydramine HCl [Benadryl] 25 mg capsule 50 mg PO TID PRN (Reason: allergic reaction) Qty: 20 0RF ibuprofen 600 mg tablet 600 mg PO Q6H PRN (Reason: fever or pain) Qty: 30 0RF hydrocortisone 1 % cream 1 appl topical TID PRN (Reason: allergic reaction) Qty: 28.35 0RF No Action naproxen [Naprosyn] 500 mg tablet 500 mg PO BID Qty: 20 0RF benzonatate 200 mg capsule 200 mg PO TID PRN (Reason: cough) Qty: 30 0RF dexamethasone 6 mg tablet 6 mg PO DAILY Qty: 6 0RF ibuprofen 600 mg tablet 600 mg PO Q6H PRN (Reason: fever or pain) Qty: 30 0RF lidocaine [Lidoderm] 5 % adhesive patch,medicated 1 patch topical DAILY MDD remove after 12 hours PRN (Reason: pain) Qty: 30 0RF Rx Instructions: leave on most painful area for up to 12 hrs naproxen 500 mg tablet 500 mg PO BID PRN (Reason: pain) 10 Days Qty: 20 0RF cyclobenzaprine 5 mg tablet 5 mg PO Q8H PRN (Reason: pain (scale score 7-10)) 5 Days Qty: 14 0RF ibuprofen 600 mg tablet 600 mg PO TID PRN (Reason: fever or pain) Qty: 14 0RF amoxicillin 875 mg tablet 875 mg PO BID 7 Days Qty: 14 0RF fluticasone propionate [Flonase Allergy Relief] 50 mcg/actuation spray,suspension 2 spray intranasal DAILY Qty: 16 0RF Rx Instructions: administer into each nostril erythromycin 5 mg/gram (0.5 %) ointment 1 appl ophthalmic (eye) DAILY Qty: 3.5 0RF azithromycin 250 mg tablet See Rx Instructions .ROUTE .COMPLEX Qty: 6 0RF Rx Instructions: For 250 mg dose pack: take 500 mg today (day 1), then 250 mg for 4 days (days 2-5) Interventions: ED Discharge Assessment Last Done: 10/11/24 22:39 Discharge Date/Time: 10/11/24 22:40 Print Language: Lithuanian
[2024-10-11 22:39] VITALS: BP 133/84; PULSE 89; RESP 16; TEMP 36.2; O2SAT 97
== END 2024-10-11 22:40 | disposition home or self-care (01) ==
PROVIDERS: Emergency Provider Internal Medicine
DX: T63.441A Toxic effect of venom of bees, accidental (unintentional), initial encounter (principal); Y92.9 Unspecified place or not applicable
CPT/HCPCS: 99283

== ENCOUNTER 2025-02-05 13:11 | Emergency (ER) | payer OTHER, SELFPAY ==
--- NOTE | 2025-02-05 | ECG_ITS ---
Test Reason : CP Blood Pressure : */* mmHG Vent. Rate : 87 BPM Atrial Rate : 87 BPM P-R Int : 136 ms QRS Dur : 86 ms QT Int : 372 ms P-R-T Axes : 53 11 27 degrees QTcB Int : 447 ms Normal sinus rhythm Cannot rule out Anterior infarct , age undetermined Abnormal ECG When compared with ECG of 01-Apr-2024 22:41, Nonspecific T wave abnormality now evident in Anterior leads Referred By: Generic ED Physician Electronically Signed By: KRISTEN SHARPE
--- NOTE | ~2025-02-05 | XR_ITS ---
EXAMINATION: XR CHEST CLINICAL INFORMATION: chest pain COMPARISON: None available. TECHNIQUE: Frontal view of the chest was obtained. FINDINGS: The cardiomediastinal silhouette is within normal limits. Redemonstrated mild right hemidiaphragm elevation.. There is no focal consolidation, edema, or effusion. No pneumothorax. No acute osseous abnormality. XR/XR chest 1V IMPRESSION: No acute findings Electronically signed by: Jamey Hauser MD 02/05/2025 02:49 PM EST
[2025-02-05 14:21] VITALS: BP 139/77; PULSE 80; RESP 16; TEMP 36.1; O2SAT 98; BMI 28.2
--- NOTE | 2025-02-05 14:27 | ED_ITS ---
HPI - General Adult General Chief complaint: Upper Respiratory Symptoms Stated complaint: Chest Pain Cough Time Seen by Provider: 02/05/25 17:54 History of Present Illness ED Provider: Shantel Storey HPI narrative: 39-year-old female presents to the ED for evaluation reporting a productive cough with green to yellow phlegm production for the past several days. She was sick with a cold 1 week before that. She denies any chest pain or pressure. No shortness of breath. Denies fever, chills. No palpitations. Denies any recent sick contacts or travel. No abdominal pain, nausea or vomiting, urinary complaints. No leg swelling or pain. Related Data Previous Rx's ?Medication ?Instructions ?Recorded cyclobenzaprine 5 mg tablet 5 mg PO Q8H PRN pain (scal e score 07/30/21 7-10) 5 days #14 tabs lidocaine 5 % topical patch 1 patch topical DAILY PRN pain #30 07/30/21 (Lidoderm) ea naproxen 500 mg tablet 500 mg PO BID PRN pain 10 da ys #20 07/30/21 tabs naproxen 500 mg tablet (Naprosyn) 500 mg PO BID #20 ta bs 05/08/22 benzonatate 200 mg capsule 200 mg PO TID PRN cough #30 caps 05/13/22 dexamethasone 6 mg tablet 6 mg PO DAILY #6 tabs ibuprofen 600 mg tablet 600 mg PO Q6H PRN fever or p ain 05/13/22 #30 tabs ibuprofen 600 mg tablet 600 mg PO TID PRN fever or p ain 06/26/22 #14 tabs erythromycin 5 mg/gram (0.5 %) eye 1 appl ophthalmic ( eye) DAILY #3.5 08/13/22 ointment grams amoxicillin 875 mg tablet 875 mg PO BID 7 days #14 tab s 04/02/24 fluticasone propionate 50 2 spray intranasal DAILY #16 grams 04/02/24 mcg/actuation nasal spray,suspension (Flonase Allergy Relief) azithromycin 250 mg tablet See Rx Instructions PO .COM PLEX #6 04/21/24 tabs diphenhydramine HCl 25 mg capsule 50 mg (2 x 25 mg) PO TID PRN 10/11/24 (Benadryl) allergic reaction #20 caps hydrocortisone 1 % topical cream 1 appl topical TID DC N allergic 10/11/24 reaction #28.35 grams ibuprofen 600 mg tablet 600 mg PO Q6H PRN fever or p ain 10/11/24 #30 tabs prednisone 20 mg tablet 40 mg (2 x 20 mg) PO DAILY 5 days 02/05/25 #10 tabs Allergies Allergy/AdvReac Type Severity Reaction Status Date / Time dog dander (dogs) Allergy Sneezing Verified 02/05/25 14:23 Sulfa (Sulfonamide Allergy Rash Verified 02/05/25 14:23 Antibiotics) Review of Systems 2 Review of Systems: Yes all other systems are reviewed and are negative [facility] Past Medical History Medical History COVID-19 Social History Social History Patient Tobacco Use Status: Never used Tobacco Smoked in Last 30 Days: No Use of substances other than those prescribed or required for medical reasons: No Advance Directives: No Advance Directives Information Provided: No Do you have a plan to hurt others: No Plan Patient : No Physical Exam ED Vital Signs: Vital Signs - 24 hr 02/05/25 14:21 02/05/25 18:30 02/05/25 19:10 Temperature 97 F 98.1 F 98.1 F Pulse Rate 80 63 63 Respiratory Rate 16 13 13 Blood Pressure 139/77 112/68 112/68 Pulse Oximetry 98 99 99 Oxygen Delivery Method Room Air Room Air Room Air BMI result Body Mass Index 28.2 Const General: cooperative, healthy appearing, comfortable, no acute distress, well developed, alert and awake Nutritional Appearance: well nourished Orientation/consciousness: patient oriented x3 HENMT Head: Yes normocephalic and Yes atraumatic Ears: hearing grossly normal bilaterally and external ears normal General nose exam: No nasal discharge present Face and sinus: Yes normal facial exam Mouth: lip normal Eyes General: appearance normal, both eyes and all related structures Eyelids: Yes eyelids normal Conjunctivae: conjunctivae normal Sclerae: sclerae normal Neck Neck: Yes full ROM and Yes no lymphadenopathy Chest Chest palpation & inspection: normal inspection of the chest Resp Effort & Inspection: normal respiratory effort and able to speak in complete sentences Auscultation: clear to auscultation bilaterally Cardio Rate: regular rate Rhythm: regular rhythm Heart sounds: S1 normal heart sound present, S2 normal heart sound present and no murmurs GI Inspection: Yes normal to inspection Auscultation: normal bowel sounds Skin General skin exam: no rashes or lesions noted Wounds: no wounds Hair: normal Nails: normal Neuro General: patient oriented x3, gait normal and moves all extremities Cognition (Neuro): normal cognition Gait exam (Neuro): Normal gait present Extrem General: Yes full ROM and Yes capillary refill normal Psych Appearance: well kempt Mental Status: mental status grossly normal Speech and movement: Normal speech and movement present Course Course Course Narrative: RME: 39-year-old female presents to ED for coughing, body aches, chills, sore throat. Patient states pink phlegm when she coughing. EKG was ordered prior evaluation. We will do labs chest x-ray Medical Decision Making Medical Decision Making MDM Narrative: She appears well overall, answering all questions appropriately. The medical interpreter services was utilized given she is primarily Faroese speaking. Workup was completed via E, and is complete at time of my assessment. The EKG is overall reassuring; sinus rhythm. The x-ray of the chest does not show any acute pneumonia. The COVID, flu, RSV panel all is negative, troponin is flat, pro BNP is also normal. Lungs CTA, normal heart sounds. Speaking in full and clear sentences. I did consider PE however patient is PERC negative. She has been complaining of flu-like symptoms and common cold symptoms for about 1 week, and reports that she can not go to work today due to feeling unwell. She likely has acute bronchitis due to underlying viral pathology. We will discharge the patient home with oral steroids for the next several days, as well as instructions for [id number] Tylenol, ibuprofen use, as well as cough suppressant and expectorant. I have recommended she follow up with PCP within 1 week. Provided strict return precautions to the ED for which she is agreeable. Differential Diagnosis Differential Diagnoses: The differential diagnosis associated with the presentation includes Pneumonia, viral illness, heart failure/fluid overload, tuberculosis, PE Admission/Observation Consideration of admission/observation: Escalation of care including admission/observation considered Lab Data [facility] Lab Attestation statement: I reviewed the patient's lab results. 02/05/25 14:36 02/05/25 14:36 Labs: Lab Results 02/05/25 Range/Units 14:36 WBC 7.5 (4.8-10.8) X10*3/uL RBC 4.68 (4.20-5.50) X10*6/uL Hgb 13.5 (12.0-16.0) g/dl Hct 40.3 (37.0-47.0) % MCV 86.1 (80.0-98.0) fL MCH 28.8 (27.0-33.0) pg MCHC 33.5 (31.0-35.0) g/dl RDW 12.3 (11.0-16.0) % Plt Count 263 (160-400) X10*3/uL MPV 10.8 (9.4-12.3) fL Immature Gran % (Auto) 0.3 (0.0-0.4) % Neut % (Auto) 67.9 (45-73) % Lymph % (Auto) 20.7 (20-40) % [place] % (Auto) 6.5 (2-11) % Eos % (Auto) 3.9 (0-4) % Baso % (Auto) 0.7 (0-2) % Lymph # (Auto) 1.6 (1.2-4.9) X10*3/uL [place] # (Auto) 0.5 (0.1-1.2) X10*3/uL Eos # (Auto) 0.3 (0.0-0.4) X10*3/uL Baso # (Auto) 0.1 (0.0-0.2) X10*3/uL Abs Immat Gran (auto) 0.02 (0.00-0.03) X10*3/uL Absolute Neuts (auto) 5.1 (2.0-8.3) x10*3/uL Absolute Nucleated RBC 0.000 (0.0-0.012) X10*3/uL Nucleated RBC % (auto) 0.0 (0.0-0.2) /100WBC Sodium 139 (135-145) mmol/L Potassium 3.9 (3.3-5.1) mmol/L Chloride 108 (96-108) mmol/L Carbon Dioxide 25 (22-29) mmol/L Anion Gap 10 L (12-20) BUN 10 (9-16) mg/dL Creatinine 0.74 (0.5-1.4) mg/dL Estim Creat Clear Calc 102.6 Estimated GFR > 60 Random Glucose 110 (60-115) mg/dL Calcium 9.5 D (8.4-10.2) mg/dL Total Bilirubin 0.3 (0.0-1.0) mg/dL AST 22 (5-31) U/L ALT 29 (0-31) U/L Alkaline Phosphatase 82 (39-117) U/L Troponin I High Sens < 2.7 (<3.5-17.0) ng/L NT-Pro-B Natriuret Pep 170.4 (<300) pg/mL Total Protein 7.5 (6.5-8.0) g/dL Albumin 4.3 (3.5-5.0) g/dL COVID-19 (CHEKO) Negative (Negative) COVID-19 Clin Com See Note Influenza Type A (PCR) NEGATIVE (Negative) Influenza Type B (PCR) NEGATIVE (Negative) RSV RNA Qual (PCR) NEGATIVE (Negative) SARS-CoV-2 RNA (RT-PCR) NEGATIVE (Negative) Independent Interpretation I performed an independent interpretation of an: EKG and Plain X-Ray Interpretation: EKG to my preliminary interpretation reveals sinus rhythm with a rate of 87 beats per minute, no ST depressions or elevations. Test Reason : CP Vent. Rate : 87 BPM Atrial Rate : 87 BPM P-R Int : 136 ms QRS Dur : 86 ms QT Int : 372 ms P-R-T Axes : 53 11 27 degrees QTcB Int : 447 ms Normal sinus rhythm Cannot rule out Anterior infarct , age undetermined Abnormal ECG When compared with ECG of 01-Apr-2024 22:41, Nonspecific T wave abnormality now evident in Anterior leads I have reviewed the patient's imaging and agree with the radiologist's findings. Radiology Impression Discussion of test interpretation with radiology: I have reviewed the radiologist's reading. Radiologist Impression: X-Ray Chest: IMPRESSION: No acute findings Electronically signed by: Jamey Hauser MD 02/05/2025 02:49 PM EST External Record Review External record reviewed: Outpatient record Social Determinants Language barrier, medical interpreter service was utilized Discharge Plan Discharge Clinical Impression: Bronchitis Patient Disposition: Home, Self-Care Instructions: Acute Bronchitis (ED), How Your Lungs Work (ED) Additional Instructions: As we discussed, your workup today was overall reassuring. You had an extensive workup that included an EKG, lab work, chest x-ray, and viral panel. The x-ray showed no evidence of pneumonia, and your lab work was overall reassuring. You likely have an acute bronchitis or upper respiratory infection, but at this time antibiotics are not indicated, given this is likely viral in nature. We do recommend that you follow-up with your primary care provider within the next several days. Additionally, we recommend you take the prescribed prednisone once daily in the morning for the next 5 days to help with your coughing. We also recommend the use [id number] Tylenol, ibuprofen every 4-6 hours alternating as needed for generalized aches and pains. You may also use a cough suppressant for sleep, and a cough expectorant during the daytime. With any new, worsening complaints at the time, please seek re-evaluation in the ED. [place] comentamos, los resultados de mcbride evaluaci?n de hoy fueron en general tranquilizadores. Se le realizaron pruebas exhaustivas que incluyeron un electrocardiograma, an?lisis de laboratorio, radiograf?a de t?rax y un panel viral. La radiograf?a no mostr? evidencia de neumon?a y los an?lisis de laboratorio fueron en general tranquilizadores. Es probable que tenga bronquitis aguda o veda infecci?n de las v?as respiratorias superiores, flaquita en [place] momento no se recomiendan antibi?ticos, dado que probablemente se trate de vead infecci?n viral. Le recomendamos que consulte con mcbride m?dico de cabecera en los pr?ximos d?as. Adem?s, le recomendamos que tome la prednisona recetada veda vez al d?a por la ma?adelso bambi los pr?ximos 5 d?as para ayudar con la tos. Tambi?n le recomendamos que tome paracetamol (Tylenol) o ibuprofeno de venta roderikc cada 4 a 6 horas, altern?ndolos seg?n sea necesario, para eleni y molestias generales. Tambi?n puede usar un antitusivo para dormir y un expectorante bambi el d?a. Si presenta alg?n s?ntoma nuevo o que empeore, por favor, acuda a urgencias para veda reevaluaci?n. Prescriptions: New prednisone 20 mg tablet 40 mg PO DAILY 5 Days Qty: 10 0RF No Action naproxen [Naprosyn] 500 mg tablet 500 mg PO BID Qty: 20 0RF benzonatate 200 mg capsule 200 mg PO TID PRN (Reason: cough) Qty: 30 0RF dexamethasone 6 mg tablet 6 mg PO DAILY Qty: 6 0RF ibuprofen 600 mg tablet 600 mg PO Q6H PRN (Reason: fever or pain) Qty: 30 0RF lidocaine [Lidoderm] 5 % adhesive patch,medicated 1 patch topical DAILY MDD remove after 12 hours PRN (Reason: pain) Qty: 30 0RF Rx Instructions: leave on most painful area for up to 12 hrs naproxen 500 mg tablet 500 mg PO BID PRN (Reason: pain) 10 Days Qty: 20 0RF cyclobenzaprine 5 mg tablet 5 mg PO Q8H PRN (Reason: pain (scale score 7-10)) 5 Days Qty: 14 0RF ibuprofen 600 mg tablet 600 mg PO TID PRN (Reason: fever or pain) Qty: 14 0RF amoxicillin 875 mg tablet 875 mg PO BID 7 Days Qty: 14 0RF fluticasone propionate [Flonase Allergy Relief] 50 mcg/actuation spray,suspension 2 spray intranasal DAILY Qty: 16 0RF Rx Instructions: administer into each nostril erythromycin 5 mg/gram (0.5 %) ointment 1 appl ophthalmic (eye) DAILY Qty: 3.5 0RF azithromycin 250 mg tablet See Rx Instructions .ROUTE .COMPLEX Qty: 6 0RF Rx Instructions: For 250 mg dose pack: take 500 mg today (day 1), then 250 mg for 4 days (days 2-5) diphenhydramine HCl [Benadryl] 25 mg capsule 50 mg PO TID PRN (Reason: allergic reaction) Qty: 20 0RF ibuprofen 600 mg tablet 600 mg PO Q6H PRN (Reason: fever or pain) Qty: 30 0RF hydrocortisone 1 % cream 1 appl topical TID PRN (Reason: allergic reaction) Qty: 28.35 0RF Referrals: Physician,Nonstaff [Primary Care Provider, Medical] Stand Alone Forms: Work/School Release Interventions: ED Discharge Assessment Last Done: 02/05/25 19:10 Discharge Date/Time: 02/05/25 19:10 Print Language: Japanese
[2025-02-05 14:41] LABS: MANUAL DIFF FLAG NO
[2025-02-05 14:44] LABS: Hematocrit 40.3 % (37.0-47.0); Hemoglobin 13.5 g/dl (12.0-16.0); Imm Gran Abs Auto 0.02 X10*3/uL (0.00-0.03); Imm Gran Pct Auto 0.3 % (0.0-0.4); Lymphocytes Absolute Auto 1.6 X10*3/uL (1.2-4.9); Mean Corpuscular HGB Conc 33.5 g/dl (31.0-35.0); Mean Corpuscular Hemoglobin 28.8 pg (27.0-33.0); Mean Corpuscular Volume 86.1 fL (80.0-98.0); NRBC Abs Auto 0.000 X10*3/uL (0.0-0.012); NRBC Pct Auto 0.0 /100WBC (0.0-0.2); Platelet Count 263 X10*3/uL (160-400); Red Blood Count 4.68 X10*6/uL (4.20-5.50); White Blood Count 7.5 X10*3/uL (4.8-10.8)
[2025-02-05 14:58] LABS: Alanine Aminotransferase 29 U/L (0-31); Albumin Level 4.3 g/dL (3.5-5.0); Alkaline Phosphatase 82 U/L (39-117); Anion Gap 10 (12-20); Aspartate Amino Transferase 22 U/L (5-31); Blood Urea Nitrogen 10 mg/dL (9-16); Calcium 9.5 mg/dL (8.4-10.2); Carbon Dioxide 25 mmol/L (22-29); Chloride 108 mmol/L (96-108); Creatinine Clr Calc Pharmacy 102.6; Estimated Glomerular Filt Rate > 60; Potassium 3.9 mmol/L (3.3-5.1); Sodium 139 mmol/L (135-145); Total Protein 7.5 g/dL (6.5-8.0)
[2025-02-05 14:59] LABS: COVID-19 Test Negative (Negative); IDNOW Serial# 58CA691E
[2025-02-05 15:03] LABS: NT Pro B Type Natriuretic Pept 170.4 pg/mL (<300)
[2025-02-05 15:06] LABS: Troponin-I High Sensitivity < 2.7 ng/L (<3.5-17.0)
[2025-02-05 15:21] LABS: Resp Syncy Virus RNA Qual PCR NEGATIVE (Negative); SARS COV2 PCR INHOUSE NEGATIVE (Negative)
[2025-02-05 18:30] VITALS: BP 112/68; PULSE 63; RESP 13; TEMP 36.7; O2SAT 99
[2025-02-05 19:10] VITALS: BP 112/68; PULSE 63; RESP 13; TEMP 36.7; O2SAT 99
== END 2025-02-05 19:10 | disposition home or self-care (01) ==
PROVIDERS: Physician Assistant; Emergency Provider Emergency Medicine
DX: J40 Bronchitis, not specified as acute or chronic (principal); R07.9 Chest pain, unspecified; R05.9 Cough, unspecified; Z03.818 Encounter for observation for suspected exposure to other biological agents ruled out; R94.31 Abnormal electrocardiogram [ECG] [EKG]
CPT/HCPCS: 71045; 80053; 83880; 84484; 85025; 87635; 87637; 93005; 99283; 99285

== ENCOUNTER → 2025-02-05 13:16 | Outpatient (BNV) | payer OTHER, SELFPAY | PROVIDERS: Emergency Provider Emergency Medicine; Visit Provider Internal Medicine | DX: R94.31 Abnormal electrocardiogram [ECG] [EKG] (principal); R07.9 Chest pain, unspecified | CPT/HCPCS: 93010 ==

== ENCOUNTER → 2025-02-05 14:26 | Outpatient (BNV) | payer OTHER, SELFPAY | PROVIDERS: Visit Provider Radiology Diagnostic Ultrasound | DX: R07.9 Chest pain, unspecified (principal) | CPT/HCPCS: 71045 ==